=== PATIENT | female | born 1965 | race Caucasian/White ===

== ENCOUNTER 2016-09-28 21:27 | Emergency (ER) | payer OTHER ==
[2016-09-28] MEDS ORDERED: PHENERGAN IM ONE (23:45)
[2016-09-28] MEDS ORDERED: TORADOL IM ONE (23:45)
[2016-09-28] MEDS ORDERED: BENADRYL IM ONE (23:45)
--- NOTE | 2016-09-28 23:46 | PROVIDER DOCUMENTATION ---
HPI-Headache - General Chief Complaint: Headache Stated Complaint: HEADACHE Time Seen by Provider: 09/28/16 23:10 Source: patient Allergies/Adverse Reactions: Patient Allergies Allergy/AdvReac Type Severity Reaction Status Date / Time No Known Allergies Allergy Verified 05/19/15 11:09 Home Medications: Aripiprazole [Abilify] 5 mg PO QAM 05/29/13 Aspirin 81 mg PO DAILY 02/23/14 Budesonide/Formoterol Fumarate [Symbicort 160-4.5 Mcg Inhaler] 1 puff INH DAILY PRN 02/23/14 Buspirone [Buspar] 15 mg PO BID 02/23/14 Metoprolol [Lopressor] 50 mg PO DAILY 02/23/14 Sertraline HCl [Zoloft] 200 mg PO DAILY 02/23/14 Meloxicam 15 mg PO DAILY 04/17/15 PRAVAstatin [Pravachol] 100 mg PO QHS 04/17/15 Ranolazine [Ranexa] 1,000 mg PO BID 04/17/15 Tramadol [Ultram] 50 mg PO TID 04/17/15 Trazodone [Desyrel] 150 mg PO QHS 04/17/15 Metformin [Glucophage] 500 mg PO DAILY 02/28/16 Umeclidinium Sparks [Incruse Ellipta] 62.5 mcg IH DAILY 02/28/16 - History of Present Illness-Headache Nature of Presenting Problem: 51 y/o F presents to the ED with a headache for 2 days in her temples, bilateral ear pain, vomiting and nausea. Headache Location: reports: temporal Quality of Pain: reports: aching Severity: reports: mild, moderate Onset/Duration: reports: 2 days ago Timing: reports: still present Headache Context: reports: nothing Headache History: reports: occasional headaches Any recent trauma/injury?: reports: none Headache severity at the maximum: moderate Preceding Symptoms: reports: none Headache Exacerbated by:: reports: nothing Modifying Factors: improves with: nothing Similar Symptoms Previously?: No Recently seen or treated by another doctor?: No Review of Systems - Adult - REVIEW OF SYSTEMS - ADULT Constitutional: denies: chills, fever Eyes: reports: no symptoms reported Ears, Nose, Mouth & Throat: reports: ear pain. denies: hearing loss, mouth/ dental pain, throat pain Cardiovascular: reports: no symptoms reported Respiratory: denies: cough, shortness of breath, wheezing Gastrointestinal: reports: no symptoms reported Genitourinary: reports: no symptoms reported Musculoskeletal: reports: no symptoms reported Integumentary: reports: no symptoms reported Neurological: reports: headache/migraines. denies: dizziness/vertigo, slurred speech, syncope Psychiatric: reports: no symptoms reported Endocrine: reports: no symptoms reported Hematologic/Lymphatic: reports: no symptoms reported Allergic/Immunologic: reports: no symptoms reported All Other Systems: Reviewed and Negative Past History - Adult - PAST MEDICAL HISTORY-ADULT Review of Records: reports: Old Records Reviewed, Nursing Assessment Review, Medications Reviewed Major Childhood Illnesses: reports: denies history Cardiovascular: reports: HTN Respiratory: reports: asthma, COPD, sleep apnea (bi pap) Psychiatric: reports: bipolar Endocrine/Immune: reports: thyroid disorder Other Conditions: reports: denies history - PRIOR SURGERIES/PROCEDURES Surgical/Procedure History: reports: cholecystectomy, BTL, orthopedic (extremity ) - PRIOR HOSPITALIZATIONS Prior Hospitalizations: reports: none - IMMUNIZATION STATUS Childhood Immunizations: See Nurse Assessment Flu Vaccine: See Nurse Assessment - FAMILY HISTORY Family History: reviewed, not pertinent Physical Exam- Neurological - Physical Exam-Neuro Initial Vital Signs Reviewed: Yes General Appearance: appears well, alert, no apparent distress Eye Exam: bilateral eye: normal inspection, PERRL HENMT: moist mucous membranes, normal ENT inspection, pharynx normal, TM abnormal (right) Head Injury: no evidence of injury. negative: active bleeding Neck: non-tender, full range of motion, supple, normal inspection Respiratory: lungs clear, normal breath sounds, no pleuratic chest pain, no respiratory distress, no accessory muscle use Cardiovascular: normal peripheral pulses, tachycardia Abdominal Exam: normal bowel sounds, non tender, soft Extremity: normal range of motion, non-tender, normal gait, normal inspection gaming director Exam: normal hearing, normal speech, PERRL Motor/Sensory: no motor deficit, no sensory deficit, no pronator drift Neurologic: gaming director II-XII nml as tested, grossly normal, no motor/sensory deficits Integumentary: normal color, normal turgor, warm/dry Psych/Mental Status: normal mood/affect, normal thought content, normal thought process, oriented x 3 Progress - PLAN OF CARE/RESULTS Progress/Plan/Lab Results: Orders Category Date Time Status Diphenhydramine [Benadryl] Med 09/28/16 23:45 Discontinued 50 mg IM NOW ONE Ketorolac [Toradol] Med 09/28/16 23:45 Discontinued 60 mg IM NOW ONE Promethazine [Phenergan] Med 09/28/16 23:45 Discontinued 25 mg IM NOW ONE Vital Signs Temp Pulse Resp BP Pulse Ox 09/28/16 21:50 93 L 09/28/16 21:47 98 F 102 H 18 152/84 No Known Allergies Allergy (Verified 05/19/15 11:09) Aripiprazole [Abilify] 5 mg PO QAM 05/29/13 Aspirin 81 mg PO DAILY 02/23/14 Budesonide/Formoterol Fumarate [Symbicort 160-4.5 Mcg Inhaler] 1 puff INH DAILY PRN 02/23/14 Buspirone [Buspar] 15 mg PO BID 02/23/14 Metoprolol [Lopressor] 50 mg PO DAILY 02/23/14 Sertraline HCl [Zoloft] 200 mg PO DAILY 02/23/14 Albuterol [Albuterol Neb] 2.5 mg INH RTQ6H #0 neb 05/25/14 Meloxicam 15 mg PO DAILY 04/17/15 PRAVAstatin [Pravachol] 100 mg PO QHS 04/17/15 Ranolazine [Ranexa] 1,000 mg PO BID 04/17/15 Tramadol [Ultram] 50 mg PO TID 04/17/15 Trazodone [Desyrel] 150 mg PO QHS 04/17/15 Levothyroxine Sodium [Synthroid] 100 mcg PO DAILY #30 tablet 06/22/15 Metformin [Glucophage] 500 mg PO DAILY 02/28/16 Umeclidinium Sparks [Incruse Ellipta] 62.5 mcg IH DAILY 02/28/16 Albuterol 2.5MG/Ipratrop 0.5MG [Duoneb (A & A)] 3 ml INH RTQ4H #180 neb CefDINIR [Omnicef] 300 mg PO BID #14 capsule 03/01/16 Methylprednisolone [Medrol Dosepak] 4 mg PO DIRECTED #1 package 03/01/16 Amoxicillin/Pot Clavulanate [Augmentin] 875 mg PO Q12HR #14 tablet 01/10/17 Neomycin/Polymyxn/Hc Otic Susp [Cortisporin Otic Susp] 4 drop RIGHT EAR TID #1 bottle 09/28/16 Departure - Departure Time of Disposition Order: 23:48 DIAGNOSIS: Headache Qualifiers: Headache type: unspecified Headache chronicity pattern: unspecified pattern Intractability: not intractable Qualified Code(s): R51 - Headache Right otitis media Qualifiers: Chronicity: unspecified Disposition: HOME 01 Certified Medical Emergency: Emergent Condition: Stable Additional Instructions: Follow up with PCP ED Follow Up Instructions: You have been treated by a care provider in the Emergency Department. These instructions are being provided to you so you can have an understanding of how to care for yourself upon discharge. Upon discharge from the Emergency Department, you are responsible for making arrangements for follow-up care by a physician of your choice. Take all prescribed medications as directed. Return to the Emergency Department immediately for any new or worsening symptoms. You may call the Physician Referral phone number at [phone] to obtain a list of Physicians who are taking new patients. Prescriptions: Amoxicillin/Pot Clavulanate [Augmentin] 875 mg PO Q12HR #14 tablet Neomycin/Polymyxn/Hc Otic Susp [Cortisporin Otic Susp] 4 drop RIGHT EAR TID #1 bottle Instructions: Migraine Headache, [id number] Attestation - Scribe Verification/Attestation Scribe:: Roberto Devi Acting as Scribe for:: Roxy Queen Scribe documention review:: This chart was documented by a scribe and accurately reflects the service the provider performed and the decisions made by the provider. - Physician/ Mid-level Attestation Patient care was provided by Mid-level provider (WIND [employer]UR[employer] SHEET METAL WORKER/PA):: Yes Mid-level provider:: Roxy Queen Mid-level documentation review:: The Mid-level provider documentation, treatment plan and medical decision making was reviewed by the physician who agrees with all treatment and medical decision making by the MLP.
[2016-09-29 00:24] VITALS: BP 122/81
== END 2016-09-29 01:12 | disposition home or self-care (01) ==
LOC: P.ED 21:27
DX: H66.91 Otitis media, unspecified, right ear (principal); R51 Headache; H92.03 Otalgia, bilateral; R11.2 Nausea with vomiting, unspecified; R00.0 Tachycardia, unspecified; I10 Essential (primary) hypertension; J44.9 Chronic obstructive pulmonary disease, unspecified; F31.9 Bipolar disorder, unspecified; Z79.899 Other long term (current) drug therapy; Z79.82 Long term (current) use of aspirin
CPT/HCPCS: 96372; J1200; J1885; J2550

== ENCOUNTER 2017-01-10 19:54 | Inpatient (IN) ==
[2017-01-10 20:14] LABS: BASO% 0.1 % (0.0-0.8); EOS# 0.02 X1000 (0.0-0.7); EOS% 0.3 % (0.0-10.0); HEMATOCRIT 39.9 % (37.0-47.0); IMM GRAN# 0.01 X1000 (0.0-0.04); IMM GRAN% 0.1 % (0.0-0.5); LYMPH# 1.13 X1000 (1.2-3.4); LYMPH% 15.1 % (20.5-51.1); MANUAL DIFF NEEDED? NO; MCH 32.8 PG (27-31); MCHC 32.6 g/dL (33-37); MCV 100.8 FL (81-99); MONO# 0.58 X1000 (0.11-0.59); MONO% 7.7 % (1.7-9.3); MPV 9.3 FL (7.4-10.4); NEUT% 76.7 % (42.2-75.2); PLT 279 X1000 (130-400); RBC 3.96 XMIL (4.2-5.4)
[2017-01-10 20:39] LABS: AGAP 7; ALBUMIN 4.2 g/dL (3.5-5.0); ALKALINE PHOSPHATASE 62 U/L (32-104); BUN 3 mg/dL (8-22); CHLORIDE 81 mmol/L (98-107); COSMO 248; GOT 13 U/L (10-30); GPT 9 U/L (10-36); POTASSIUM 3.8 mmol/L (3.5-5.1); SODIUM 124 mmol/L (136-145); TCO2 35 mmol/L (25-35)
[2017-01-10] MEDS ORDERED: ZOFRAN IV ONE (20:58)
[2017-01-10] MEDS ORDERED: DEMEROL IV ONE (20:58)
[2017-01-10] MEDS ORDERED: NS 1,000 ML IV ONE ×2 (21:15)
[2017-01-10] MEDS ORDERED: MORPHINE IV PRN (21:15)
--- NOTE | 2017-01-10 21:15 | PROVIDER DOCUMENTATION ---
This chart was entered by Corina Fitch, acting as scribe for Rodrigo Garces MD. HPI-Musculoskeletal Pain/Inj - GENERAL Time Seen by Provider: 01/10/17 20:17 Source: patient, EMS - HX OF PRESENT ILLNESS-MUSKULOSKELTAL Nature of Presenting Problem: Pt is a 51 year old female present to the Er with cc of ankle injury. Pt was transported by EMS and has obvious ankle fracture. Pt states she took all her medicines at once instead of throughout the day and fell. When MD feels on foot pt states she can feel him touching her. Quality of Pain: reports: aching Severity in ED: moderate Onset/Duration: just prior to arrival Timing: still present Modifying Factors: improves with: immobilization, rest Any recent injury?: Yes Locality of Occurance: Home Similar Symptoms Previously?: No Recently seen or treated by another doctor?: No - FALL INJURY Location of Pain/Injury: reports: other (ankle) Pain Radiation: reports: no radiation Reason for Fall: reports: other (took all her prescription medicines at once) Symptoms prior to fall:: reports: none. denies: fever/chills/sweaty, chest pain , cough, dizzy/lightheaded, headache, seizure Loss of Consciousness: no loss of consciousness Injury Associated Symptoms: reports: unable to bear weight - LOWER EXTREMITY PAIN/INJURY Lower Extremities Pain: ankle: left Context / Method of Injury: reports: fell Associated Symptoms: reports: denies symptoms Review of Systems - Adult - REVIEW OF SYSTEMS - ADULT Constitutional: reports: no symptoms reported Eyes: reports: no symptoms reported Ears, Nose, Mouth & Throat: reports: no symptoms reported Cardiovascular: reports: no symptoms reported Respiratory: reports: no symptoms reported Gastrointestinal: denies: abdominal pain, hematemesis, constipation Genitourinary: denies: dysuria, discharge, frequency Musculoskeletal: reports: bone pain, joint pain, joint swelling Integumentary: denies: hives, hair loss, mole changes Neurological: denies: numbness, paresthesia, seizure Psychiatric: reports: no symptoms reported Endocrine: reports: no symptoms reported Hematologic/Lymphatic: reports: no symptoms reported Allergic/Immunologic: reports: no symptoms reported All Other Systems: Reviewed and Negative Past History - Adult - PAST MEDICAL HISTORY-ADULT Review of Records: reports: Old Records Reviewed, Nursing Assessment Review Cardiovascular: reports: HTN Respiratory: reports: asthma, COPD, sleep apnea (bi pap) Psychiatric: reports: bipolar Endocrine/Immune: reports: thyroid disorder - PRIOR SURGERIES/PROCEDURES Surgical/Procedure History: reports: cholecystectomy, BTL, orthopedic (extremity ) - IMMUNIZATION STATUS Childhood Immunizations: See Nurse Assessment Flu Vaccine: See Nurse Assessment - FAMILY HISTORY Family History: reviewed, not pertinent - SOCIAL HISTORY Smoking: cigarettes (former smoker) Provider spent 3-5 mins advising pt. on dangers of tobacco.: Discussed manners to quit use, and f/u contacts for add'l counseling. Physical Exam-Injury Related - Physical Exam-Injury Related Initial Vital Signs Reviewed: Yes General Appearance: appears well, alert, no apparent distress Immobilization?: applied in ED Eyes: PERRL/EOMI, pink conjunctivae Head, Ears, Nose, Mouth & Throat: moist mucous membranes, normal ENT inspection , TMs normal, pharynx normal Neck: non-tender, full range of motion Respiratory: chest non-tender, lungs clear, normal breath sounds, no pleuratic chest pain, no respiratory distress, no accessory muscle use Cardiovascular: normal peripheral pulses, regular rate, rhythm, no edema, no gallop, no JVD, no murmur Abdominal Exam: normal bowel sounds, non tender, soft Back Exam: normal inspection, no CVA tenderness Extremity: deformity, inflammation, swelling Integumentary: normal color, warm/dry Neurologic: grossly normal, no motor/sensory deficits Psych/Mental Status: normal mood/affect, normal thought content, normal thought process, oriented x 3 - Glascow Coma Score Best Eye Response ([place]ett): (4) open spontaneously Best Verbal Response ([place]ett): (5) oriented Best Motor Response ([place]): (6) obeys commands Jett Total: 15 Progress - PLAN OF CARE/RESULTS Progress/Plan/Lab Results: Vital Signs - 8 hr 01/10/17 20:06 01/10/17 20:17 Temperature 98.9 F 97.8 F Pulse Rate 93 H 107 H Respiratory Rate 18 23 Blood Pressure 124/82 94/78 O2 Sat by Pulse Oximetry 98 97 Laboratory Results - last 24 hr 01/10/17 01/10/17 19:40 19:40 WBC 7.50 RBC 3.96 L Hgb 13.0 Hct 39.9 MCV 100.8 H MCH 32.8 H MCHC 32.6 L RDW Std Deviation 12.6 Plt Count 279 MPV 9.3 Immature Gran % (Auto) 0.1 Neut % (Auto) 76.7 H Lymph % (Auto) 15.1 L [place] % (Auto) 7.7 Eos % (Auto) 0.3 Baso % (Auto) 0.1 Immature Gran # (Auto) 0.01 Neut # (Auto) 5.75 Lymph # (Auto) 1.13 L [place] # (Auto) 0.58 Eos # (Auto) 0.02 Baso # (Auto) 0.01 Sodium 124 L Potassium 3.8 Chloride 81 L Carbon Dioxide 35 Anion Gap 7 BUN 3 L Creatinine 0.4 L Estimated GFR/1.73 m2 > 60 BUN/Creatinine Ratio 8 Glucose 137 H Calculated Osmolality 248 Calcium 9.0 Total Bilirubin 0.20 AST 13 ALT 9 L Alkaline Phosphatase 62 Total Protein 7.0 Albumin 4.2 Globulin 3.0 Albumin/Globulin Ratio 2.0 Orders Category Date Time Status CBC WITH ELECTRONIC DIFF [HEME] Stat Lab 01/10/17 19:40 Completed COMPREHENSIVE METABOLIC PANEL [CHEM] Stat Lab 01/10/17 19:40 Completed TYPE & SCREEN [BBK] Stat Lab 01/10/17 20:45 Received Meperidine [Demerol] Med 01/10/17 20:58 Discontinued 25 mg IV NOW ONE Ondansetron [Zofran] Med 01/10/17 20:58 Discontinued 4 mg IV NOW ONE Result Diagrams: 01/10/17 19:40 01/10/17 19:40 - XRAY 1 XRAY: Left XRAY Study: Ankle Impression: Abnormal (COMPOUND ANKLE FX) Departure - Departure Time of Disposition Decision: 21:12 DIAGNOSIS: Hyponatremia Trimalleolar fracture of ankle, closed Qualifiers: Encounter type: initial encounter Laterality: left Qualified Code(s): S82.852A - Displaced trimalleolar fracture of left lower leg, initial encounter for closed fracture COPD (chronic obstructive pulmonary disease) Qualifiers: COPD type: unspecified COPD Qualified Code(s): J44.9 - Chronic obstructive pulmonary disease, unspecified Disposition: ADMITTED INPATIENT 09 Certified Medical Emergency: Emergent Condition: Stable This chart was documented by the indicated scribe, (Corina Fitch) and accurately reflects the services I performed and decisions made by Mili haas Michael L., MD, as attested by the provider's signature.
[2017-01-11 00:09] LABS: ALLEN TEST YES; BLOOD TYPE ARTERIAL; DRAW SITE R RADIAL; METHB 1.4 % (0.0-1.5); SAMPLE BLOOD
[2017-01-11 00:16] LABS: INR 0.96; PROTIME 13.1 Seconds (9.2-11.7); PTT 31.5 Seconds (22.0-36.0)
[2017-01-11] MEDS: DUONEB (A & A) INH SCH ×5 (00:20→21:00)
[2017-01-11 00:28] LABS: O2(CT) 13.8 mL/dL (15.0-23.0); SAO2 90.8 % (95.0-100.0); THB 12.5 g/dL (11.5-17.4); pH(98.6) 7.31 (7.35-7.45)
[2017-01-11 00:36] LABS: PCO2(98.6) 85 mmHg (35-45); PO2(98.6) 45 mmHg (60-100)
[2017-01-11 00:37] LABS: MODALITY CANNULA
[2017-01-11 01:11] LABS: URINE CULTURE NEEDED? NO; URINE SOURCE CATH
[2017-01-11 01:17] LABS: BILIRUBIN URINE NEGATIVE (NEGATIVE); BLOOD URINE NEGATIVE (NEGATIVE); COLOR YELLOW; GLUCOSE URINE NEGATIVE (NEGATIVE); LEUKOCYTES URINE NEGATIVE (NEGATIVE); NITRITE URINE NEGATIVE (NEGATIVE); PROTEIN URINE TRACE mg/dL (NEGATIVE); SP GRAVITY URINE 1.017; TURBIDITY URINE CLEAR (CLEAR); UROBILINOGEN URINE NORMAL (NORMAL)
[2017-01-11 01:18] LABS: URINE MICRO REVIEW NEEDED? YES
[2017-01-11 01:20] LABS: UR EPITHELIAL CELLS <10 /HPF (<10); URINE BACTERIA NEGATIVE /HPF; URINE RBC <10 /HPF (<10); URINE WBC <10 /HPF (<10)
[2017-01-11 01:27] LABS: UR AMPHETAMINES QUAL NONE DETECTED (NONE DETECT); UR BARBITUATES QUAL NONE DETECTED (NONE DETECT); UR BENZODIAZEPIN QUAL NONE DETECTED (NONE DETECT); UR CANNABINOIDS QUAL NONE DETECTED (NONE DETECT); UR COCAINE QUAL NONE DETECTED (NONE DETECT); UR METHADONE QUAL PRESUMPTIVE POSITIVE (NONE DETECT); UR OPIATES QUAL NONE DETECTED (NONE DETECT); UR OXYCODONE QUAL NONE DETECTED (NONE DETECT); UR PCP QUAL NONE DETECTED (NONE DETECT)
[2017-01-11 01:39] LABS: URINE CASTS GRANULAR PRESENT
[2017-01-11] MEDS ORDERED: TYLENOL PO PRN (03:04)
[2017-01-11] MEDS: MORPHINE IM PRN ×3 (03:59→14:33)
[2017-01-11 06:10] LABS: MANUAL DIFF NEEDED? NO
[2017-01-11 06:22] LABS: BASO% 0.1 % (0.0-0.8); EOS# 0.01 X1000 (0.0-0.7); EOS% 0.1 % (0.0-10.0); HEMATOCRIT 37.9 % (37.0-47.0); HEMOGLOBIN 12.1 g/dL (12.0-16.0); IMM GRAN# 0.02 X1000 (0.0-0.04); IMM GRAN% 0.2 % (0.0-0.5); LYMPH# 1.05 X1000 (1.2-3.4); LYMPH% 12.1 % (20.5-51.1); MCH 32.2 PG (27-31); MCHC 31.9 g/dL (33-37); MCV 100.8 FL (81-99); MONO% 11.5 % (1.7-9.3); PLT 273 X1000 (130-400); RBC 3.76 XMIL (4.2-5.4)
[2017-01-11 06:31] LABS: HEMOGLOBIN A1C 4.7 % (4.8-6.0)
[2017-01-11 06:36] LABS: ALLEN TEST YES; BE 23.2 mmoll (-3.0-3.0); BLOOD TYPE ARTERIAL; DRAW SITE R BRACHIAL; METHB 1.6 % (0.0-1.5); O2(CT) 14.6 mL/dL (15.0-23.0); SAMPLE BLOOD; SAO2 89.8 % (95.0-100.0); THB 12.6 g/dL (11.5-17.4); pH(98.6) 7.33 (7.35-7.45)
--- NOTE | 2017-01-11 06:36 | EKG Report ---
Test Performed on : 01/11/2017 06:11:40 AM Test Reason : Ankle Fx, Surgical Patient Blood Pressure : / mmHG Vent. Rate : 117 BPM Atrial Rate : 117 BPM P-R Int : 174 ms QRS Dur : 078 ms QT Int : 328 ms P-R-T Axes : 062 083 059 degrees QTc Int : 457 ms Sinus tachycardia. Otherwise normal ECG When compared with ECG of 06-NOV-2016 17:25, No significant change was found Confirmed by Eula VENTURA, Harshil Frazier ([id number]) on 01/11/2017 7:26:42 PM
[2017-01-11 06:37] LABS: AGAP 6; BUN 2 mg/dL (8-22); CALCIUM 9.4 mg/dL (8.8-10.2); CHLORIDE 89 mmol/L (98-107); COSMO 270; POTASSIUM 4.3 mmol/L (3.5-5.1); SODIUM 137 mmol/L (136-145); TCO2 42 mmol/L (25-35)
[2017-01-11 06:39] LABS: MODALITY CANNULA
[2017-01-11] MEDS: SODIUM CHLORIDE 0.9% INJ SCH (06:40)
[2017-01-11] MEDS: PROTONIX IV SCH (06:40)
[2017-01-11] MEDS: SYNTHROID PO SCH (06:40)
[2017-01-11 06:43] LABS: PCO2(98.6) 104 mmHg (35-45); PO2(98.6) 49 mmHg (60-100)
--- NOTE | 2017-01-11 07:59 | Diag Imaging Result Document ---
PROCEDURE NAME: HEAD W/O CONTRAST - 01/11/2017 CT OF THE HEAD WITHOUT CONTRAST: FINDINGS: There is no evidence of mass effect, bleed, or abnormal extra-axial fluid collection. There is some patient motion. The paranasal sinuses are clear, and there is no evidence of acute bony disease. Compared to 02/22/2014, there has been no significant change in the appearance of the brain. IMPRESSION: No evidence of acute intracranial disease.
--- NOTE | 2017-01-11 08:29 | Diag Imaging Result Document ---
PROCEDURE NAME: ANKLE 2 VIEWS LEFT - 01/10/2017 LEFT ANKLE, TWO VIEWS: FINDINGS: The tibia is displaced medially from the talus by 2-3 cm. I believe there is an avulsed fragment from the medially malleolus. There is also an oblique fracture through the distal fibula with displacement and angulation of at least 25 degrees. There may be an additional fracture to the distal tibia at the ankle as well. IMPRESSION: Fractures to the distal tibia and fibula with displacement.
--- NOTE | 2017-01-11 08:31 | Diag Imaging Result Document ---
PROCEDURE NAME: CHEST-1 VIEW - 01/11/2017 SINGLE FRONTAL RADIOGRAPH OF THE CHEST: COMPARISON: 11/06/2016. FINDINGS: There is evidence of prior granulomatous disease, stable. The lungs are grossly clear. There is no definite pleural fluid collection. Cardiac silhouette is grossly unremarkable. IMPRESSION: No definite acute pathology by plain radiograph.
[2017-01-11] MEDS: TOPROL XL PO SCH ×2 (09:01→09:05)
[2017-01-11] MEDS: ZOFRAN IV PRN ×2 (09:34→14:33)
[2017-01-11 09:46] LABS: BLOOD TYPE ARTERIAL; SAMPLE BLOOD; pH(98.6) 7.31 (7.35-7.45)
[2017-01-11 09:47] LABS: PCO2(98.6) 93 mmHg (35-45); PO2(98.6) 79 mmHg (60-100); THB 12.9 g/dL (11.5-17.4)
[2017-01-11 09:48] LABS: ALLEN TEST YES; DRAW SITE R RADIAL; MODALITY BI PAP
--- NOTE | 2017-01-11 12:16 | PROGRESS NOTE ---
DATE: 01/11/2017 This is a 51-year-old. who was admitted, I believe yesterday. She had a fall and suffered a fracture of the distal tibia and fibula with displacement. She is scheduled for surgery today. CT of her head was unremarkable. No evidence of any new intracranial process. A chest x-ray done this morning, no definite pathology. EXAM: Today appears comfortable. Temp 98.1 degrees, pulse 112, respirations 20, blood pressure 112/58. The pupils were equal, round. CVP less than 6 cm.Lungs: Clear in all lung song. Cardiovascular: Regular rhythm and rate without murmur or S3. Weight 255 pounds. Urine output 6000 mL. LAB REVIEW: From this morning, white count 8690, hematocrit 37, platelet count 273,000. Chemistry: Sodium 137, potassium 4.2, chloride 89. BUN 2, creatinine 0.5. Hemoglobin A1c was 4.7. TSH was 0.03. ASSESSMENT AND PLAN: 1. Fracture of her ankle, distal fracture with displacement of the left ankle and distal tibia and fibula. So plan is for surgery today. Apparently she had a fracture of her back in the past and surgery on her back. 2. History of bipolar disease. 3. Diabetes mellitus type 2. Follow sugars. 4. History of hypothyroidism. We did get a TSH which was low. We will check her T4 and TSH. Right now labs reviewed unremarkable. White count, stable. Red blood cell count stable. Hematocrit is 37. On review of her orders, I do not see any change at this point. She is getting normal saline at 187 mL an hour. She is getting Zofran 4 mg IV as needed, Protonix 40 mg IV q.24 hours. Metoprolol succinate 25 mg daily, and metformin ER 500 mg daily. Levothyroxine 175 mg a day. We will check electrolytes, CBC and a T4 and TSH, B12 and folate in the morning. cc: Abhinav Nam MD
--- NOTE | 2017-01-11 13:49 | HISTORY AND PHYSICAL ---
PRIMARY CARE PROVIDERS: Dr. Arias. CHIEF COMPLAINT: Altered mental status and fall. HISTORY OF PRESENT ILLNESS: Ms. Sosa is a 51-year-old, female who presented to [place] [facility] with complaints of fall and left ankle pain. Upon initial arrival, the ER nurse reported that the patient was lethargic though she did become more alert after arrival, though was still very confused. The patient could state her name but did not know what month it was or where she was, she could not state the President either. Obtaining a past medical history as well as history of present illness was difficult due to this. The patient did report that she took all her medicines at 1 time, and was standing out on her porch and lost her balance and fell off the porch. She initially denied to [facility] that she hit her head and stated that she did not have any loss of consciousness , though once upon arrival to [facility], the patient did report to me that she did hit her head. Other than her left ankle pain and a spot on her left lower quadrant, the patient denied any other pain. Upon evaluation in the ER the patient was noted to have a displaced trimalleolar left ankle fracture. She was also found to be hyponatremic with a sodium level of 124. Dr. Leung, Orthopedic Surgeon, was notified and did want the patient admitted to [facility] for possible surgery this morning. Upon patient's arrival to [facility], she was still quite confused. She did have slightly decreased oxygen saturation on her nasal cannula at 2 L of 88%. The patient reports that she wears oxygen at home due to COPD disease. She also reports that she wears CPAP at night. Due to the patient's confusion, we did ultimately decide order a CT of the head, which was negative for any acute intracranial abnormality. We also did order arterial blood gases which had results of pH is 7.31 and PCO2 of 85, PO2 45, HCO3 34.6, O2 saturation of 90.8. The patient was subsequently placed on BiPAP. Her chest x-ray showed no acute disease. The patient has been placed on the medical floor with telemetry for further evaluation of her ankle fracture, COPD and hyponatremia. REVIEW OF SYSTEMS: A 12 point review of systems was conducted with the patient. All were negative except for pertinent positives mentioned above in the HPI. As previously mentioned, this was a limited due to the patient's current condition and confusion. PAST MEDICAL HISTORY: 1. COPD. 2. Hypertension. 3. Sleep apnea. 4. Bipolar. 5. Hypothyroidism. 6. Chronic hypercapnic respiratory failure. 7. Obesity. 8. Diabetes mellitus type 2. 9. Hyperlipidemia. PAST SURGICAL HISTORY: 1. Cholecystectomy. 2. Tubal ligation. FAMILY HISTORY: Family history is unable to be obtained at this time due to the patient's condition and confusion. SOCIAL HISTORY: The patient reports that she lives at home with her dad. She does report that she still smokes a pack of cigarettes per day. There is no known history of alcohol or illicit drug abuse. ALLERGIES: Patient has no known allergies. HOME MEDICATIONS: The patient does have an extensive medication list, though due to her current condition and confusion, we are unable to confirm and verify this. If her confusion has not improved by in the morning, we will try to contact the patient's pharmacy to verify her medications. DIAGNOSTIC DATA/LABORATORY RESULTS: White blood cell count 7.5, hemoglobin 13, hematocrit 39.9, platelet count 279,000. PT 13.1, INR 0.96, PTT 31.5, sodium 124, potassium 3.8. Chloride 81, bicarb 35. BUN 3, creatinine 0.4, GFR is greater than 60. Glucose is 137. Hemoglobin A1c was 4.7, calcium 9, liver function tests within normal limits. Arterial blood gases were obtained on the nasal cannula at 4 L, pH was 7.31, pCO2 85, pO2 45, HCO3 was 34.6 with a base excess of 13. O2 saturation was 90.8, carboxyhemoglobin was 12. Urine drug screen was positive for methadone. Urinalysis was obtained via cath and was positive for trace protein and was negative for ketones, blood nitrites, leukocytes or bacterium. Chest x-ray shows no acute abnormality. We are waiting official radiology over read. CT the head noncontrast showed no acute intracranial abnormality. Ankle complete showed a left trimalleolar fracture that is displaced. PHYSICAL EXAMINATION: VITAL SIGNS: Temperature is 97.9 degrees, heart rate 110, respirations 20, blood pressure 110/56. O2 saturation is 89% nasal cannula at 2 L. We did increase the patient's oxygen to 4 L nasal cannula and her oxygen saturation did come up to 94%. GENERAL: Ms. Sosa is a 51-year-old, female, who was resting in the inpatient bed. She was in no acute distress, though was confused upon examination due to this her history of present illness and obtaining past medical history was limited. HEENT: Head is atraumatic, normocephalic. Pupils are equal, round, reactive to light. Were 3 mm bilaterally and brisk. Oral mucosa is moist. Oropharynx clear. NECK: Supple. Trachea midline. CARDIOVASCULAR: Patient has normal S1, S2. No murmurs, gallops, or rubs appreciated with a regular rate and rhythm. PULMONARY: Patient has symmetrical chest expansion bilaterally. Lung sounds and bilateral song had wheezing noted. ABDOMEN: Soft, nontender, nondistended. Bowel sounds are present in all 4 quadrants. Normoactive. The patient did report some pain in her left lower quadrant. Upon examination, she does have an area of discoloration which appears to be ecchymosis in the LLQ area. This is likely where her pain is coming from though she denies any tenderness. GENITOURINARY: Patient has Alston catheter in place with clear yellow urine noted in the Alston drainage bag. EXTREMITIES: Patient has a posterior OCL splint noted to left lower extremity from approximately just below the knee down. Capillary refill and sensation distal to the splint is intact and cap refill is less than 3 seconds. All other extremities are within normal limits. Pulse, motor and sensory is intact in all extremities as well. Pedal pulse in right foot is 3+. INTEGUMENTARY: Patient skin is pink, warm, dry intact. No other lesions or sores noted. NEUROLOGIC: The patient is alert and oriented to person only, though cranial nerves 2-12 appear to be grossly intact. ASSESSMENT AND PLAN: 1. Left trimalleolar ankle fracture. For this the patient has been splinted as previously mentioned. We have placed a consult with Dr. Leung and will await his evaluation and further recommendations, though Dr. Garces did speak with him last night and he reported that he did plan to take the patient to surgery sometime today hopefully. We will continue to follow her neurovascular status in her left lower extremity distal to the injury and splint and continue to follow. 2. Metabolic encephalopathy. This is likely multifactorial. This could be related to ingestion of medications and/or her hypercapnia. We have ordered for the patient to be placed on BiPAP. We have held all sedative medications at this time. Though the patient does have an acute left ankle fracture, we did keep an order for morphine p.r.n. as needed, though will use this cautiously and we have placed orders for 2 q. hour neuro checks as well as some aspiration precautions. The patient does have vital signs also ordered q. 4 hours and we will continue to monitor her neurological status closely. 3. Chronic hypercapnic respiratory failure. As I previously mentioned we have placed the patient on BiPAP at this time. We will monitor her respiratory status closely and repeat ABG in the morning. 4. Chronic obstructive pulmonary disease. We will continue to give the patient a DuoNeb albuterol Atrovent treatments q.4 hours and monitor her respiratory status closely. 5. Hyponatremia. This could be multifactorial as well. The patient does have severe COPD disease and does also take Trileptal which can be known to cause some hyponatremia. We will give her a normal saline infusion and repeat a BMP in the morning and monitor this closely. She is already on a 2QH neuro checks as previously mentioned. 6. Hypertension. Will continue with her metoprolol 25 mg p.o. daily. 7. Diabetes mellitus type 2. We will continue her metformin and do morning and night fingerstick blood sugars. 8. Hypothyroidism. We will continue her Synthroid. We have order for TSH in the morning. 9. Tobacco abuse. We will continue to talk with the patient throughout her admission about smoking cessation given that she does have severe COPD disease and chronic hypercapnic respiratory failure. 10. The patient is placed on the medical floor with telemetry. She will have vital signs q.4 hours, deep vein thrombosis prophylaxis will be provided her with sequential compression devices at this time, though unfortunately given her left lower extremity injury, this could only be placed on the right lower extremity. 11. GI prophylaxis provided with Protonix 40 mg IV q.24 hours. She will be NPO at this time. Further orders and recommendations pending hospital course, diagnostic studies and physician evaluation. Dictated by TUSHAR Leon for Eren Locke MD Patient seen and examined by me ; plan discussed with [employer]MAIL OPERATIONS MANAGER cc: MD CHRISTOPH Ann
[2017-01-11] MEDS: GLUCOPHAGE XR PO SCH (16:51)
[2017-01-11] MEDS ORDERED: SENSORCAINE 0.5%-EPI 1:200,000 ONE (17:32)
[2017-01-11] MEDS ORDERED: KEFZOL 2 GM/D5W 2 GM/50 ML IVPB ONE (17:32)
[2017-01-11] MEDS ORDERED: CLAVE SECONDARY SET 11953 ONE (17:33)
[2017-01-11] MEDS ORDERED: NEOSPORIN G.U. IRRIGANT ONE (17:35)
[2017-01-11] MEDS ORDERED: DIPRIVAN 1% 1,000 MG/100 ML BOTTLE ONE (19:45)
[2017-01-11] MEDS ORDERED: NS 1,000 ML ONE (19:52)
[2017-01-11] MEDS: DILAUDID ONE ×4 (20:23→20:40)
[2017-01-11 20:44] LABS: ALLEN TEST YES; BE 19.2 mmoll (-3.0-3.0); BLOOD TYPE ARTERIAL; DRAW SITE R RADIAL; O2(CT) 14.8 mL/dL (15.0-23.0); PO2(98.6) 52 mmHg (60-100); SAMPLE BLOOD; SRATE 14 BPM; THB 11.3 g/dL (11.5-17.4); TVOL 600 mL; pH(98.6) 7.47 (7.35-7.45)
[2017-01-11 20:46] LABS: MODALITY VENTILATOR; PCO2(98.6) 63 mmHg (35-45)
[2017-01-11] MEDS: NS 1,000 ML IV SCH (21:19)
[2017-01-11] MEDS: DIPRIVAN 1% 1,000 MG/100 ML BOTTLE IV SCH ×2 (21:45→23:17)
--- NOTE | 2017-01-11 21:59 | OPERATIVE NOTE ---
PROCEDURE DATE: 01/11/2017 PREOPERATIVE DIAGNOSIS: Bimalleolar ankle fracture dislocation left ankle. POSTOP DIAGNOSIS: Bimalleolar ankle fracture dislocation left ankle. PROCEDURE: Open reduction, internal fixation, left bimalleolar ankle fracture dislocation. SURGEON: Flaca Peterson MD. TISSUE REWINDER: Roberto Mondragon. ANESTHESIA: General. COMPLICATION: None. PROCEDURE IN DETAIL: This is a 51-year-old female with a unstable fracture dislocation left ankle presents for surgical fixation. Risks, benefits, and no guarantees were discussed, and she is willing to proceed. She was taken the operating room and satisfactory anesthesia obtained. The left ankle was prepped and draped in usual sterile fashion. A time-out taken to confirm operative site, procedure, and patient. The leg was wrapped with an Esmarch. Tourniquet inflated to 350 mmHg. A lateral incision was made over the distal fibula and the distal fibular fracture noted to be a Coe C fracture with syndesmosis disruption. This was reduced with a reduction clamp and a precontoured Synthes locking plate secured the lateral aspect of the fibula. The C-arm was used to verify accurate fracture reduction and hardware placement with care taken to avoid joint penetration. Afterwards, a medial incision was made over the medial malleolus and the medial malleolar fracture reduced near anatomically. This was stabilized with 2 intramedullary 45 length partially threaded cancellous bone screws. Afterwards, the syndesmosis screw was placed through 1 of the empty slots on the lateral plate at the level of the syndesmosis with the ankle dorsiflexed and reduced. The wounds were irrigated and closed in layers with 2-0 Vicryl, and skin sheridan. The C-arm was used to verify accurate fracture reduction and hardware placement. A short-leg cast was applied. Tourniquet released with good return of capillary blood flow. No intraoperative complications were noted. Instrument count and sponge count was correct at the time of closure. cc: Arturo Peterson MD
[2017-01-12] MEDS: KEFZOL 1 GM/D5W 1 GM/50 ML IVPB IV SCH ×2 (01:31→10:27)
[2017-01-12] MEDS: DIPRIVAN 1% 1,000 MG/100 ML BOTTLE IV SCH ×5 (01:32→10:06)
[2017-01-12] MEDS: MORPHINE IM PRN ×3 (02:00→13:36)
[2017-01-12] MEDS: DUONEB (A & A) INH SCH ×5 (03:30→23:00)
--- NOTE | 2017-01-12 04:28 | CONSULTATION ---
DATE OF CONSULTATION: 01/11/2017 CHIEF COMPLAINT: Left ankle pain. HISTORY OF PRESENT ILLNESS: Ms. Sosa is a 51-year-old female who is experiencing left ankle pain status post fall. Patient states she took all the medications at once instead of throughout the day, and she fell. She was unable to bear weight on her injury. She was brought to the emergency room for evaluation, where radiographic findings revealed a left closed displaced bimalleolar fracture and we were consulted for Orthopedic evaluation. ALLERGIES: No known drug allergies. PAST MEDICAL HISTORY: 1. Hypertension. 2. Diabetes. 3. COPD. 4. Sleep apnea. 5. Bipolar disorder. 6. Thyroid disorder. PAST SURGICAL HISTORY: 1. Cholecystectomy. 2. BTL. 3. Orthopedic. SOCIAL HISTORY: She is a former smoker. CURRENT MEDICATIONS: 1. Albuterol ipratropium (DuoNeb). 2. Levothyroxine 175 mcg p.o. daily. 3. Metformin 500 mg p.o. daily. 4. Metoprolol succinate 25 mg p.o. daily. REVIEW OF SYSTEMS: HEENT: No known history of cerebrovascular disease, Denies recent interval health changes. Cardiac: The patient has a history of hypertension. Denies any coronary artery disease or valvular heart disease. No chest pain, pressure, or other anginal equivalents. Pulmonary: The patient is a former smoker, and she has COPD and asthma. Gastrointestinal: No recent nausea, vomiting, diarrhea, constipation. : Denies kidney or bladder infection or dysfunction. Neurological/Extremities: No radicular pain, weakness, or paresthesia. Musculoskeletal: She is here today with a left ankle fracture. PHYSICAL EXAMINATION: General: The patient is resting comfortably at bedside. She is able to articulate and answer all questions fully. HEENT: Head is normocephalic. Ears are patent. Throat without exudate. Neck: Supple. Heart: Regular rate and rhythm. No murmurs, gallops, or rubs. Lungs: Clear to auscultation bilaterally. Abdomen: Nontender. : Deferred. Neurological: She discerns soft touch to the affected extremity. Gross motor function is intact. Musculoskeletal: Left ankle, she is currently in a splint and there is some deformity. I did not appreciate any ecchymoses. Neurovascularly intact. IMPRESSION: Left closed displaced bimalleolar fracture. PLAN: Open reduction, internal fixation left ankle. The risks and benefits of surgery were explained to the patient including risks of anesthesia, , bleeding, infection, damage from infection, nerves, blood vessels, also bleeding blood clots and other imponderables were discussed with the patient and she wishes to proceed with operative management at this time. Dictated by KJ Tesfaye for Peterson Leung MD cc: KJ Tesfaye MD [facility]
[2017-01-12 04:35] LABS: ALLEN TEST YES; BE 16.4 mmoll (-3.0-3.0); BLOOD TYPE ARTERIAL; DRAW SITE R RADIAL; METHB 1.6 % (0.0-1.5); O2(CT) 16.2 mL/dL (15.0-23.0); PO2(98.6) 70 mmHg (60-100); SAMPLE BLOOD; SAO2 96.8 % (95.0-100.0); SRATE 14 BPM; THB 12.3 g/dL (11.5-17.4); TVOL 600 mL; pH(98.6) 7.52 (7.35-7.45)
[2017-01-12 04:36] LABS: MODALITY VENTILATOR; PCO2(98.6) 51 mmHg (35-45)
[2017-01-12] MEDS: XARELTO PO SCH (05:39)
[2017-01-12] MEDS: PROTONIX IV SCH (05:52)
[2017-01-12] MEDS: SYNTHROID PO SCH (05:53)
[2017-01-12 05:57] LABS: FREE T4 2.37 ng/dL (0.93-1.70)
--- NOTE | 2017-01-12 06:06 | Diag Imaging Result Document ---
PROCEDURE NAME: CHEST-PORTABLE - 01/12/2017 PORTABLE CHEST: COMPARISON: Compared to 01/11/2017. FINDINGS: Endotracheal tube remains in good position. The lungs are well expanded. The heart is not enlarged. There is granuloma in the left base. No consolidation. Mild increased interstitial markings. IMPRESSION: Mild pulmonary edema.
--- NOTE | 2017-01-12 06:14 | Diag Imaging Result Document ---
PROCEDURE NAME: CHEST-PORTABLE - 01/11/2017 SUPINE PORTABLE CHEST: COMPARISON: Compared to 01/11/2017 earlier in the day. FINDINGS: Interval placement of an endotracheal tube. The tip is located 2 cm above the alexandr. The lungs are well expanded. The heart is not enlarged. The vessels are not distended. No pleural effusions identified. There is a granuloma in the left base. IMPRESSION: Endotracheal tube in good position.
[2017-01-12] MEDS ORDERED: FENTANYL ONE ×2 (06:54→06:56)
[2017-01-12] MEDS ORDERED: VERSED ONE (06:55)
[2017-01-12] MEDS ORDERED: DIPRIVAN 1% ONE (06:55)
[2017-01-12] MEDS ORDERED: LASIX IV ONE (08:18)
[2017-01-12] MEDS: NS 1,000 ML IV SCH ×2 (08:20→20:42)
[2017-01-12 08:39] LABS: MANUAL DIFF NEEDED? NO
[2017-01-12 08:42] LABS: BASO% 0.3 % (0.0-0.8); EOS# 0.01 X1000 (0.0-0.7); EOS% 0.1 % (0.0-10.0); HEMATOCRIT 37.4 % (37.0-47.0); HEMOGLOBIN 11.7 g/dL (12.0-16.0); LYMPH# 0.79 X1000 (1.2-3.4); LYMPH% 11.6 % (20.5-51.1); MCH 31.9 PG (27-31); MCHC 31.3 g/dL (33-37); MCV 101.9 FL (81-99); MONO# 1.09 X1000 (0.11-0.59); MPV 9.1 FL (7.4-10.4); PLT 262 X1000 (130-400); RBC 3.67 XMIL (4.2-5.4)
[2017-01-12] MEDS ORDERED: CATAPRES-TTS-2 TD SCH (09:00)
--- NOTE | 2017-01-12 09:02 | PROGRESS NOTE ---
DATE: 01/12/2017 SUBJECTIVE: She is intubated, resting, had a good night. PHYSICAL EXAMINATION: Vital Signs: Temperature 98.3 degrees, pulse 90, respirations 19, blood pressure 141/89. HEENT: Pupils were equal and round. CVP less than 6 cm. Lungs: Clear in all lung song. Cardiovascular Examination: Regular rhythm and rate without murmur or S3. Is and Os: Urine output greater than 2 L. LAB: Reviewed from yesterday. We will check some more blood work today. Note that her T4 was a little elevated and TSH depressed. Chest x-ray this morning, mild pulmonary edema. Chest x-ray from yesterday, endotracheal tube was in good position at that time. Underwent surgery yesterday per Dr. Peterson, open reduction and internal fixation of the left femoral ankle fracture-dislocation. ASSESSMENT AND PLAN: 1. Fracture of the ankle, distal fracture, displacement of the left ankle. Underwent open reduction and internal fixation yesterday. On the ventilator secondary to sedation. Continue to try and wean her off the ventilator. 2. Bipolar disease. Aware. Continue her current medications. 3. Diabetes mellitus type 2. We will follow pattern sugars. 4. History of hypothyroidism. At present time, thyroid is a little high so we will back down on her Synthroid. 5. Review of her medications. We will decrease her Synthroid down to 150 mcg a day. I will give her a dose of Lasix based on her chest x-ray, hopefully can wean. We will check electrolytes and CBC this morning. cc: Abhinav Nam MD
[2017-01-12] MEDS: TOPROL XL PO SCH (09:05)
[2017-01-12] MEDS ORDERED: ZOFRAN ONE (09:11)
[2017-01-12] MEDS ORDERED: XYLOCAINE-MPF 2% ONE (09:11)
[2017-01-12] MEDS ORDERED: NORCURON ONE (09:11)
[2017-01-12] MEDS ORDERED: QUELICIN (DOSE) ONE (09:12)
[2017-01-12] MEDS ORDERED: LASIX IV STA (09:48)
[2017-01-12 10:19] LABS: AGAP 12; BUN 4 mg/dL (8-22); CHLORIDE 95 mmol/L (98-107); COSMO 277; MAGNESIUM 1.9 mg/dL (1.5-2.7); POTASSIUM 3.6 mmol/L (3.5-5.1); SODIUM 140 mmol/L (136-145); TCO2 33 mmol/L (25-35)
[2017-01-12 11:17] LABS: ALLEN TEST YES; BE 19.3 mmoll (-3.0-3.0); BLOOD TYPE ARTERIAL; DRAW SITE R RADIAL; METHB 1.5 % (0.0-1.5); O2(CT) 17.1 mL/dL (15.0-23.0); PO2(98.6) 63 mmHg (60-100); SAMPLE BLOOD; SAO2 94.6 % (95.0-100.0); THB 13.3 g/dL (11.5-17.4); pH(98.6) 7.41 (7.35-7.45)
[2017-01-12 11:20] LABS: MODALITY VENTILATOR; PCO2(98.6) 76 mmHg (35-45)
[2017-01-12] MEDS ORDERED: HALDOL IV ONE (12:13)
--- NOTE | 2017-01-12 13:26 | CONSULTATION ---
DATE OF CONSULTATION: 01/12/2017 REQUESTING PHYSICIAN: Dr. Nam. REASON FOR CONSULTATION: Respiratory failure. HISTORY OF PRESENT ILLNESS: Ms. Sosa is a 51-year-old white female, with severe COPD, obesity, who presented to [facility] with an ankle fracture and altered mental status. The patient was hyponatremic upon presentation along with hypercapnic. CT scan of the brain was negative. The patient underwent an open reduction internal fixation of a left bimalleolar ankle fracture dislocation. She has been maintained on mechanical ventilation following surgery with high oxygen requirements. PAST MEDICAL HISTORY: 1. COPD with ongoing tobacco use. 2. Obesity. 3. Hypertension. 4. Sleep apnea. 5. Bipolar disorder. 6. Hypothyroidism. 7. Type 2 diabetes mellitus. 8. Dyslipidemia. 9. Status post cholecystectomy. 10. Tubal ligation. SOCIAL HISTORY: Ongoing tobacco use. No alcohol or drug use reported. FAMILY HISTORY: Not available for review. REVIEW OF SYSTEMS: Cannot be obtained. PHYSICAL EXAMINATION: General: Reveals an obese, white female, on mechanical ventilation. Vital signs: Blood pressure 130/79, heart rate 106, oxygen saturation 91% on 50% FiO2. HEENT: Pupils are equal but sluggish. Oropharynx appears clear with endotracheal tube in place. Neck: Supple. Chest: Reveals prolonged expiratory phase without significant wheezing. Cardiac Exam: Increased rate, regular rhythm. Abdomen: Obese and soft with diminished bowel sounds. Extremities: Reveal trace to 1+ edema with surgical dressings on the left ankle. LABORATORIES: Chest x-ray reveals mild pulmonary edema. Arterial blood gas this morning reveals a pH of 7.52, pCO2 of 51, PO2 of 70, on assist control of 14, FiO2 60%. Tidal volume 600. Sodium 137, potassium 4.3, chloride 89, bicarbonate 42, BUN 2, creatinine 0.5. White blood count 6.80. Hemoglobin 11.7, platelet count 263,000. IMPRESSION: A 51-year-old with severe COPD, chronic hypercapnic respiratory failure, who now has hypercapnic respiratory failure and hypoxemic respiratory failure following surgery. The patient is currently on mechanical ventilation. The patient will receive a Lasix dose and weaning trial will be performed to evaluate for potential for extubation today. RECOMMENDATIONS: 1. Begin ventilator weaning. 2. Increase albuterol and Atrovent nebulizers from q.6 hours to q.4 hours. 3. Diuretic trial. 4. Smoking cessation will be encouraged following extubation. 5. Additional recommendations pending hospital course. cc: Dany Michel MD
[2017-01-12] MEDS: ATIVAN IV PRN (15:38)
[2017-01-12] MEDS ORDERED: DESYREL PO PRN (16:39)
[2017-01-12] MEDS: GLUCOPHAGE XR PO SCH (16:58)
[2017-01-12] MEDS: ABILIFY PO SCH (17:12)
[2017-01-12] MEDS ORDERED: HALDOL IM ONE (19:38)
[2017-01-12] MEDS: SEROQUEL PO SCH (20:43)
[2017-01-12] MEDS: BUSPAR PO SCH (20:43)
[2017-01-12] MEDS: TRILEPTAL PO SCH (20:43)
[2017-01-13] MEDS: ATIVAN IV PRN ×2 (02:07→08:55)
[2017-01-13] MEDS: DUONEB (A & A) INH SCH ×6 (03:35→23:20)
[2017-01-13 04:33] LABS: ALLEN TEST YES; BE 14.9 mmoll (-3.0-3.0); BLOOD TYPE ARTERIAL; DRAW SITE R RADIAL; METHB 0.1 % (0.0-1.5); O2(CT) 15.4 mL/dL (15.0-23.0); PO2(98.6) 85 mmHg (60-100); SAMPLE BLOOD; SAO2 100.8 % (95.0-100.0); THB 11.2 g/dL (11.5-17.4); pH(98.6) 7.47 (7.35-7.45)
[2017-01-13 04:34] LABS: MODALITY BI PAP; PCO2(98.6) 56 mmHg (35-45)
[2017-01-13 05:25] LABS: AGAP 13; ALBUMIN 3.3 g/dL (3.5-5.0); ALKALINE PHOSPHATASE 80 U/L (32-104); BUN 9 mg/dL (8-22); CALCIUM 8.8 mg/dL (8.8-10.2); CHLORIDE 97 mmol/L (98-107); COSMO 285; GOT 52 U/L (10-30); GPT 56 U/L (10-36); MAGNESIUM 1.8 mg/dL (1.5-2.7); POTASSIUM 2.9 mmol/L (3.5-5.1); SODIUM 144 mmol/L (136-145); TCO2 34 mmol/L (25-35); TOTAL BILIRUBIN 0.89 mg/dL (0.20-1.00); TOTAL PROTEIN 6.6 g/dL (6.3-8.3)
[2017-01-13] MEDS: SYNTHROID PO SCH (06:07)
[2017-01-13] MEDS: SODIUM CHLORIDE 0.9% INJ SCH (06:07)
[2017-01-13] MEDS: XARELTO PO SCH (06:07)
[2017-01-13] MEDS: PROTONIX IV SCH (06:07)
--- NOTE | 2017-01-13 07:32 | Diag Imaging Result Document ---
PROCEDURE NAME: CHEST-PORTABLE - 01/13/2017 AP PORTABLE CHEST AT 0500 HOURS: FINDINGS: There is some hazy opacity over the right hemidiaphragm which was not present on 01/12/2017. There is minimal atelectasis in the left costophrenic angle. The patient is rotated somewhat to the left. IMPRESSION: Questionable minimal pulmonary edema versus pneumonia, left lower lobe atelectasis.
[2017-01-13] MEDS: NS 1,000 ML IV SCH ×2 (08:05→23:59)
[2017-01-13] MEDS: POTASSIUM CHLORIDE 20 MEQ/SWI 20 MEQ/100 ML IVPB IV SCH ×2 (08:26→10:55)
[2017-01-13] MEDS: ABILIFY PO SCH (08:54)
[2017-01-13] MEDS: TOPROL XL PO SCH (08:54)
[2017-01-13] MEDS: TRILEPTAL PO SCH ×2 (08:54→20:12)
[2017-01-13] MEDS: BUSPAR PO SCH ×2 (08:54→20:12)
[2017-01-13] MEDS: ZOLOFT PO SCH (08:54)
[2017-01-13] MEDS ORDERED: HALDOL IV PRN (09:39)
--- NOTE | 2017-01-13 09:47 | PROGRESS NOTE ---
DATE: 01/13/2017 SUBJECTIVE: She is on the BiPAP, resting. She is sedated, sleeping. She was very confused and agitated yesterday. Put her back on her home medications. She has an underlying history of bipolar, I believe, and I will put her back on the Zyprexa and trazodone. Used Haldol p.r.n. Appears to be moving air comfortably. PHYSICAL EXAMINATION: Vital Signs: Temperature 98.6 degrees, pulse 100, respirations 22, blood pressure 145/74. HEENT: Pupils are equal and round. CVP less than 6 cm. Lungs: Clear in all lung song. Cardiovascular Examination: Regular rhythm and rate without murmur or S3. Is and Os: Good urine output, 5 L. LABORATORY DATA: Reviewed lab from yesterday. White count 6800, hematocrit 37, platelet count 262,000. Lab from this morning, sodium 144, potassium 2.9, chloride 97, bicarb 37, BUN 9, creatinine 0.4, blood sugars 117, 110, 100, 86, and 77. Chest x-ray from this morning, questionable minimal pulmonary edema versus pneumonia, left lower lobe atelectasis. ASSESSMENT AND PLAN: A 51-year-old female with severe chronic obstructive pulmonary disease and obesity. She came to [place]. Had an ankle fracture and altered mental status. The patient was hyponatremic on presentation and hypercapnic. CT of the brain was negative. She underwent open reduction and internal fixation of a left bimalleolar ankle fracture with dislocation and was maintained on mechanical ventilator. We were able to wean. Dr. Michel following the case. Yesterday, had a lot of confusion and delirium. Tried some Ativan. Also tried some Haldol. Continue BiPAP. Put her back on her home medications. We will supplement some potassium. She is back on trazodone 150 mg at bedtime. We have given her a little bit of Lasix because it appears that she has some pulmonary venous hypertension. She is back on her Seroquel 400 mg. cc: Abhinav Nam MD
[2017-01-13] MEDS: MORPHINE IV PRN ×3 (09:54→19:47)
[2017-01-13] MEDS: GLUCOPHAGE XR PO SCH (16:22)
[2017-01-13] MEDS: SEROQUEL PO SCH (20:11)
[2017-01-14] MEDS: DUONEB (A & A) INH SCH ×6 (03:15→23:41)
[2017-01-14 05:25] LABS: AGAP 10; BUN 9 mg/dL (8-22); CHLORIDE 99 mmol/L (98-107); COSMO 281; POTASSIUM 3.5 mmol/L (3.5-5.1); SODIUM 142 mmol/L (136-145); TCO2 33 mmol/L (25-35)
[2017-01-14] MEDS: SODIUM CHLORIDE 0.9% INJ SCH (06:14)
[2017-01-14] MEDS: PROTONIX IV SCH (06:14)
[2017-01-14] MEDS: SYNTHROID PO SCH (06:15)
[2017-01-14] MEDS: XARELTO PO SCH (06:15)
[2017-01-14] MEDS: MORPHINE IV PRN ×4 (06:15→20:46)
--- NOTE | 2017-01-14 07:36 | Diag Imaging Result Document ---
PROCEDURE NAME: CHEST-PORTABLE - 01/14/2017 ERECT AP PORTABLE CHEST AT 0540 HOURS: FINDINGS: The inspiration is less optimal than on the previous study of 01/13/2017. Otherwise, there has been no significant change. IMPRESSION: Stable chest.
[2017-01-14 09:05] LABS: ALLEN TEST YES; BE 8.6 mmoll (-3.0-3.0); BLOOD TYPE ARTERIAL; DRAW SITE R RADIAL; METHB 1.2 % (0.0-1.5); O2(CT) 15.3 mL/dL (15.0-23.0); PO2(98.6) 74 mmHg (60-100); SAMPLE BLOOD; SAO2 96.8 % (95.0-100.0); THB 11.6 g/dL (11.5-17.4); pH(98.6) 7.38 (7.35-7.45)
[2017-01-14 09:06] LABS: PCO2(98.6) 60 mmHg (35-45)
[2017-01-14 09:07] LABS: MODALITY VENTIMASK
[2017-01-14] MEDS: BUSPAR PO SCH ×2 (09:42→20:47)
[2017-01-14] MEDS: TOPROL XL PO SCH (09:42)
[2017-01-14] MEDS: ZOLOFT PO SCH (09:42)
[2017-01-14] MEDS: TRILEPTAL PO SCH ×2 (09:42→20:47)
[2017-01-14] MEDS: ABILIFY PO SCH (09:43)
--- NOTE | 2017-01-14 12:05 | PROGRESS NOTE ---
DATE: 01/14/2017 SUBJECTIVE: Patient was awake and alert. She is talking about wanting to go home. Awake and oriented. She is still in the unit, bed 14. OBJECTIVE: General: Appears to be comfortable and breathing comfortably. Vital Signs: Temperature 98.1 degrees, pulse 112, respirations 27, blood pressure 114/74. Lungs: Clear in all lung song, anterior and lateral. Cardiovascular: Regular rhythm and rate, without murmur or S3. Abdomen: Soft. Integument: Skin is warm and dry. URINE OUTPUT: Over 2 L. LABORATORIES: Blood sugars have been good 71, 81, 73. Laboratories reviewed from 01/12/2017. Electrolytes from this morning: Sodium 142, potassium 3.5, chloride 99, bicarbonate 33, BUN 9, creatinine 0.4. IMAGING: Chest x-ray from this morning: Stable test. ASSESSMENT AND PLAN: A 51-year-old with severe chronic obstructive pulmonary disease and obesity who presented to [place] and has been transferred here. She had an ankle fracture, altered mental status, and had a little bit hyponatremia and hypercapnia when she presented. CT of the brain was negative. Underwent internal reduction and internal fixation of bimalleolar ankle fracture and was maintained on the mechanical ventilator through the next day, able to wean. She has had some delirium and confusion. We got her back on her baseline medications and appears to be doing better. She is on trazodone 150 mg at bedtime, Zoloft 100 mg q.a.m., Xarelto 10 mg q.24 hours, Seroquel 400 mg at bedtime, Protonix 40 mg q.24 hours, Trileptal 300 mg b.i.d., metoprolol 25 mg daily, metformin ER 500 mg a day, Synthroid 150 mcg a day, clonidine patch 1 weekly, BuSpar 50 mg b.i.d., Abilify 5 mg q.a.m. She may be able to be transferred to the floor today. Doing better. We have been giving her morphine for pain 2-4 mg IV q.3 hours. Will see how we do with delirium. She has required 4-point restraints. From yesterday to today, appears much more cooperative, awake, and alert. cc: Abhinav Nam MD
[2017-01-14] MEDS: NS 1,000 ML IV SCH ×2 (13:22→20:48)
[2017-01-14] MEDS: GLUCOPHAGE XR PO SCH (17:11)
[2017-01-14] MEDS: SEROQUEL PO SCH (20:47)
[2017-01-15] MEDS: NS 1,000 ML IV SCH ×3 (04:15→23:08)
[2017-01-15] MEDS: PROTONIX IV SCH (06:40)
[2017-01-15] MEDS: XARELTO PO SCH (06:40)
[2017-01-15] MEDS: SYNTHROID PO SCH (06:40)
[2017-01-15] MEDS ORDERED: DUONEB (A & A) ONE (07:08)
[2017-01-15] MEDS: DUONEB (A & A) INH SCH ×5 (07:22→23:02)
[2017-01-15] MEDS: BUSPAR PO SCH ×2 (09:03→23:09)
[2017-01-15] MEDS: ZOLOFT PO SCH (09:04)
[2017-01-15] MEDS: ABILIFY PO SCH (09:04)
[2017-01-15] MEDS: MORPHINE IV PRN ×4 (09:04→23:07)
[2017-01-15] MEDS: TRILEPTAL PO SCH ×2 (09:04→23:10)
[2017-01-15] MEDS: TOPROL XL PO SCH (09:05)
[2017-01-15] MEDS: BENADRYL PO PRN ×3 (12:34→23:10)
--- NOTE | 2017-01-15 12:47 | PROGRESS NOTE ---
DATE: 01/15/2017 She states she does feel better. She wants to sit up in a chair. She would like to have some Benadryl for itching. Temp 98.3 degrees, pulse 94, respirations 14, blood pressure 134/86. CVP less than 6 cm.Lungs: Clear in all lung song. Cardiovascular: Regular rhythm and rate without murmur or S3. Abdomen: Soft. Skin: Is warm and dry. Urine output 4 L. Blood sugars 71, 75, 96. Chest x-ray from yesterday, stable chest. ASSESSMENT AND PLAN: History of COPD and obesity and obstructive chronic obstructive pulmonary disease with some sleep apnea as well. Had an ankle fracture. Underwent internal fixation and had prolonged hypercapnia and able to extubate the following day. Had some confusion in the ICU but this is much better back on her original medications and maintenance medications. Does have bipolar disorder. Doing better. See if we can elevate her foot and hopefully get her to rehab, I think we are thinking Tuesday, today is Tuesday. She is on Xarelto 10 mg a day. Zoloft 100 mg a day. Trazodone 150 mg at bedtime. Seroquel 400 mg at bedtime. Protonix 40 mg IV q.24 hours. Trileptal 300 mg b.i.d. Metoprolol succinate 25 mg a day. Glucophage 500 mg with supper. Synthroid 150 mcg daily. Clonidine patch, she is on 1 patch q.week. BuSpar 50 mg b.i.d. Abilify 5 mg q.a.m. and her IV fluids are going at 83 mL an hour. I am going to turn that down to keep vein open. I will let her try some Benadryl. Hopefully sit her up in a chair. Physical therapy involved. cc: Abhinav Nam MD
[2017-01-15] MEDS: GLUCOPHAGE XR PO SCH (16:11)
[2017-01-15] MEDS: SEROQUEL PO SCH (23:08)
[2017-01-16] MEDS: DUONEB (A & A) INH SCH ×6 (04:12→23:34)
[2017-01-16] MEDS: SYNTHROID PO SCH (06:33)
[2017-01-16] MEDS: PROTONIX IV SCH (06:33)
[2017-01-16] MEDS: BENADRYL PO PRN ×5 (06:33→21:27)
[2017-01-16] MEDS: XARELTO PO SCH (06:33)
[2017-01-16] MEDS: SODIUM CHLORIDE 0.9% INJ SCH (06:33)
[2017-01-16] MEDS: MORPHINE IV PRN ×5 (06:35→21:26)
[2017-01-16] MEDS: BUSPAR PO SCH ×2 (09:58→21:27)
[2017-01-16] MEDS: TOPROL XL PO SCH (09:59)
[2017-01-16] MEDS: ABILIFY PO SCH (09:59)
[2017-01-16] MEDS: ZOLOFT PO SCH (09:59)
[2017-01-16] MEDS: TRILEPTAL PO SCH ×2 (09:59→21:27)
--- NOTE | 2017-01-16 16:46 | PROGRESS NOTE ---
DATE: 01/16/2017 SUBJECTIVE: Ms. Sosa feels very good and she is anxious to go therapy tomorrow. No complaints. OBJECTIVE: Vital signs: Afebrile, temp 98.8 degrees, pulse 84, respirations 14, blood pressure 135/77. Neck: CVP less than 6 cm. Lungs: Clear in all lung song. Cardiovascular: Regular rhythm and rate without murmur or S3. Intake and output: Urine output about 4 L. LAB: From the reviewed. Chemistries and blood sugars have done very good, basically close to normal. ASSESSMENT AND PLAN: 1. History of chronic obstructive pulmonary disease, obesity, obstructive apnea. Doing very well. She had a prolonged ventilatory period after surgery. 2. Ankle fracture. Underwent internal fixation. Has done very well. Alert and oriented and cooperative. She is on the Xarelto. I think she will be ready for discharge tomorrow. She would like to go to rehab. REVIEW OF ORDERS: I do not see anything to change. She is complaining of some itching around the cast. We will get social service involved and see what they would like to do for rehab or to go home with rehab. cc: Abhinav Nam MD
[2017-01-16] MEDS: GLUCOPHAGE XR PO SCH (17:43)
[2017-01-16] MEDS: SEROQUEL PO SCH (21:27)
[2017-01-17] MEDS: BENADRYL PO PRN ×5 (01:52→19:41)
[2017-01-17] MEDS: DUONEB (A & A) INH SCH ×6 (02:40→22:42)
[2017-01-17] MEDS: SYNTHROID PO SCH ×2 (05:46→10:54)
[2017-01-17] MEDS: PROTONIX IV SCH ×2 (05:47→10:53)
[2017-01-17] MEDS: XARELTO PO SCH (05:47)
[2017-01-17] MEDS: MORPHINE IV PRN ×4 (06:27→19:40)
[2017-01-17] MEDS: BUSPAR PO SCH ×2 (08:39→22:05)
[2017-01-17] MEDS: ZOLOFT PO SCH (08:40)
[2017-01-17] MEDS: ABILIFY PO SCH (08:40)
[2017-01-17] MEDS: TOPROL XL PO SCH (08:40)
[2017-01-17] MEDS: TRILEPTAL PO SCH ×2 (08:40→22:06)
--- NOTE | 2017-01-17 12:20 | DISCHARGE SUMMARY ---
ADMISSION DATE: 01/10/2017 DISCHARGE DATE: 01/18/2017 HISTORY: This is a 51-year-old who presented to [facility] for complaints of a fall. She suffered left ankle pain. Upon arrival to ER noted the patient was lethargic. She did become more alert after arrival, although still had some confusion. She did know her name but did not know the month or the year or the time. PAST MEDICAL HISTORY: Was obtained. 1. She has a history of COPD. 2. Hypertension. 3. Sleep apnea. She is on O2 at home. 4. Bipolar illness for which she is taking medications. Not sure about how she has been taking recent medications. 5. Hypothyroidism. 6. Chronic hypercapnic respiratory failure. 7. Obesity. 8. Diabetes mellitus type 2. 9. Hyperlipidemia. PAST SURGICAL HISTORY: 1. Status post cholecystectomy. 2. Tubal ligation in the past. HOSPITAL COURSE: She suffered a left try malleolar ankle fracture. The patient was splinted and underwent internal fixation per Dr. Peterson on 01/11. She had open reduction internal fixation left bimalleolar ankle fracture. She did well postop. We did have to leave her on the ventilator because of her chronic obstructive and COPD disease. We were able to wean her and put her back on her medication for bipolar. She did have some delirium for about a 24 hour period and then things improved. [facility] she was ready go to rehab on 01/17/2017. She did ask for some Benadryl for the itching on her leg at the cast. DISCHARGE MEDICATION: Tylenol as needed, DuoNeb treatments q.4 p.r.n., Abilify 5 mg q.a.m., BuSpar 15 mg b.i.d., Catapres patch 0.2 mg weekly. She was getting Benadryl 25 mg q.4-6 hours p.r.n. Synthroid 150 mcg daily, Glucophage 500 mg p.o. with supper, Toprol XL 25 mg daily, Trileptal 300 mg b.i.d., Protonix 40 mg we will just give her 1 p.o. daily, Seroquel 400 mg at bedtime, Xarelto 10 mg 24 daily and I think we will continue that for I believe another 2 weeks, Zoloft 100 mg a day, trazodone 150 mg at bedtime p.r.n. sleep, and she will have her O2. cc: Abhinav Nam MD
--- NOTE | 2017-01-17 13:10 | PROGRESS NOTE ---
DATE: 01/17/2017 SUBJECTIVE: Ms. Sosa is feeling better. The only main complaint she has is that her cast is still itching. She would like to go to rehab. She would prefer to go to [facility]. OBJECTIVE: Vital Signs: Afebrile. Temperature 98 degrees, pulse 78, respirations 20, blood pressure 133/78. Lungs: Clear in all lung song. Cardiovascular: Regular rhythm and rate without murmur or S3. Abdomen: Soft. Skin: Warm and dry. Urine Output: 1800 mL. LABORATORY DATA: Blood sugar 93, 83, 73. ASSESSMENT AND PLAN: 1. History of chronic obstructive pulmonary disease and obstructive apnea, doing well. Breathing comfortably. She does have O2 at home for chronic hypoxia. 2. Ankle fracture. She underwent internal fixation. This is healing. She would like to go to rehabilitation. 3. History of primary hypothyroidism, which appears euthyroid now. Getting Synthroid. 4. I reviewed her present orders. She does have a history of bipolar illness. She is back on her medications. She has diabetes mellitus type 2. Sugars have been well controlled, in fact, almost pretty much normal sugars. She is requesting Benadryl for the itching on her right foot, and we are giving her Benadryl, which I think she would like more, but I have cautioned her against taking more than 4 Benadryl in a day. cc: Abhinav Nam MD
[2017-01-17] MEDS: GLUCOPHAGE XR PO SCH (16:29)
[2017-01-17] MEDS: SEROQUEL PO SCH (22:05)
[2017-01-18] MEDS: DUONEB (A & A) INH SCH ×3 (03:20→11:20)
[2017-01-18] MEDS: SYNTHROID PO SCH (06:02)
[2017-01-18] MEDS: SODIUM CHLORIDE 0.9% INJ SCH (06:03)
[2017-01-18] MEDS: PROTONIX IV SCH (06:03)
[2017-01-18] MEDS: XARELTO PO SCH (06:03)
[2017-01-18 07:42] VITALS: BP 135/85
[2017-01-18] MEDS: BUSPAR PO SCH (08:02)
[2017-01-18] MEDS: ABILIFY PO SCH (08:02)
[2017-01-18] MEDS: TRILEPTAL PO SCH (08:02)
[2017-01-18] MEDS: ZOLOFT PO SCH (08:02)
[2017-01-18] MEDS: TOPROL XL PO SCH (08:02)
[2017-01-18] MEDS: MORPHINE IV PRN (08:04)
[2017-01-18] MEDS: BENADRYL PO PRN (08:04)
[2017-01-19] MEDS ORDERED: SYNTHROID PO SCH (07:00)
== END 2017-01-18 11:32 ==
LOC: P.ED 19:54 → SUATTDRO 22:11 → 4N 22:11 → ICU 22:52 → 4N 01-14 18:46
PROVIDERS: ATTEND Emergency Medicine

== ENCOUNTER 2017-03-08 10:25 | Inpatient (IN) ==
[2017-03-08] MEDS ORDERED: NARCAN ONE ×2 (10:26)
[2017-03-08] MEDS ORDERED: NARCAN IV ONE (10:31)
--- NOTE | 2017-03-08 10:35 | EKG Report ---
Test Performed on : 03/08/2017 10:24:33 AM Test Reason : Suspected Overdose Blood Pressure : / mmHG Vent. Rate : 109 BPM Atrial Rate : 109 BPM P-R Int : 156 ms QRS Dur : 084 ms QT Int : 346 ms P-R-T Axes : 072 086 068 degrees QTc Int : 465 ms Sinus tachycardia. Otherwise normal ECG When compared with ECG of 01-FEB-2017 03:28, No significant change was found Unconfirmed Result
[2017-03-08] MEDS ORDERED: ROMAZICON IV ONE (10:50)
[2017-03-08 11:05] LABS: MANUAL DIFF NEEDED? NO
[2017-03-08 11:08] LABS: BASO% 0.1 % (0.0-0.8); EOS# 0.01 X1000 (0.0-0.7); EOS% 0.1 % (0.0-10.0); HEMATOCRIT 41.2 % (37.0-47.0); IMM GRAN# 0.12 X1000 (0.0-0.04); LYMPH% 8.4 % (20.5-51.1); MCH 31.9 PG (27-31); MCHC 31.6 g/dL (33-37); MCV 101.2 FL (81-99); MONO% 9.2 % (1.7-9.3); MPV 9.3 FL (7.4-10.4); NEUT% 81.2 % (42.2-75.2); PLT 351 X1000 (130-400); RBC 4.07 XMIL (4.2-5.4)
[2017-03-08 11:18] LABS: ALLEN TEST NO; BLOOD TYPE ARTERIAL; DRAW SITE R BRACHIAL; O2(CT) 14.7 mL/dL (15.0-23.0); PO2(98.6) 58 mmHg (60-100); SAMPLE BLOOD; SAO2 94.6 % (95.0-100.0); THB 12.8 g/dL (11.5-17.4)
[2017-03-08 11:20] LABS: MODALITY CANNULA; pH(98.6) 7.17 (7.35-7.45)
[2017-03-08 11:21] LABS: PCO2(98.6) 138 mmHg (35-45)
[2017-03-08 11:39] LABS: ACETAMINOPHEN < 1.2 ug/mL (10-30); AGAP 4; ALBUMIN 4.1 g/dL (3.5-5.0); ALKALINE PHOSPHATASE 97 U/L (32-104); BUN 4 mg/dL (8-22); CALCIUM 9.4 mg/dL (8.8-10.2); CHLORIDE 88 mmol/L (98-107); COSMO 269; GOT 16 U/L (10-30); GPT 16 U/L (10-36); POTASSIUM 4.5 mmol/L (3.5-5.1); SODIUM 135 mmol/L (136-145); TCO2 43 mmol/L (25-35); TOTAL BILIRUBIN 0.17 mg/dL (0.20-1.00); TOTAL PROTEIN 7.4 g/dL (6.3-8.3)
[2017-03-08] MEDS ORDERED: NS 1,000 ML IV ONE (12:04)
[2017-03-08 12:26] LABS: UR AMPHETAMINES QUAL NONE DETECTED (NONE DETECT); UR BARBITUATES QUAL NONE DETECTED (NONE DETECT); UR BENZODIAZEPIN QUAL NONE DETECTED (NONE DETECT); UR CANNABINOIDS QUAL NONE DETECTED (NONE DETECT); UR COCAINE QUAL NONE DETECTED (NONE DETECT); UR OPIATES QUAL NONE DETECTED (NONE DETECT); UR OXYCODONE QUAL NONE DETECTED (NONE DETECT); UR PCP QUAL NONE DETECTED (NONE DETECT)
[2017-03-08 12:40] LABS: UR METHADONE QUAL PRESUMPTIVE POSITIVE (NONE DETECT)
--- NOTE | 2017-03-08 12:52 | Diag Imaging Result Doc PS360 ---
EXAM: HEAD W/O CONTRAST - 03/08/2017 HISTORY: ams TECHNIQUE: Dose reduction protocol COMPARISON: 01/11/2017 FINDINGS: There is no evidence of intracranial hemorrhage, mass effect, midline shift, or hydrocephalus. There is mild ventricular asymmetry which is stable and compatible with normal variation. There is no evidence of infarct, although acute infarcts may not be immediately visible. IMPRESSION: No visible acute intracranial abnormality. No hemorrhage or mass effect. Electronically signed by Milan Jung 03/08/2017 12:50 PM
[2017-03-08] MEDS ORDERED: ATIVAN ONE (12:57)
[2017-03-08] MEDS ORDERED: ATIVAN IV ONE (13:03)
--- NOTE | 2017-03-08 14:02 | PROVIDER DOCUMENTATION ---
This chart was entered by Ngoc Dee Scribe, acting as scribe for Jesus Ruff MD. [id number] Abuse/Overdose - General Stated Complaint: unresponsive Time Seen by Provider: 03/08/17 10:26 Source: patient Allergies/Adverse Reactions: Allergies Allergy/AdvReac Type Severity Reaction Status Date / Time No Known Allergies Allergy Verified 01/31/17 23:56 Home Medications: Home Medication List Medication Instructions Recorded Confirmed Last Taken Type Budesonide/Formoterol Fumarate 1 puff INH DAILY PRN 02/23/14 03/08/17 10/14/16 History [Symbicort 160-4.5 Mcg Inhaler] Buspirone [Buspar] 15 mg PO BID 02/23/14 03/08/17 10/21/16 09:00 History 15mg Ranolazine [Ranexa] 1,000 mg PO BID 04/17/15 03/08/17 10/21/16 09:00 History 1000mg Albuterol [Albuterol Neb] 2.5 mg INH RTQ6H 10/21/16 03/08/17 10/14/16 History Oxcarbazepine [Trileptal] 300 mg PO BID 30 Days 10/29/16 03/08/17 Unknown Rx Quetiapine [Seroquel] 400 mg PO QHS 30 Days 10/29/16 03/08/17 Unknown Rx Sertraline [Zoloft] 100 mg PO QAM 30 Days 10/29/16 03/08/17 Unknown Rx Aripiprazole [Abilify] 5 mg PO QAM 11/07/16 03/08/17 Unknown History Aspirin [Aspir-Low] 81 mg PO DAILY 11/07/16 03/08/17 Unknown History Folic Acid 1 mg PO DAILY 11/07/16 03/08/17 Unknown History Levothyroxine Sodium 175 mcg PO DAILY@0700 11/07/16 03/08/17 Unknown History Metformin HCl [Metformin HCl ER] 500 mg PO WSUPPER 11/07/16 03/08/17 Unknown History Metoprolol Succinate 25 mg PO DAILY 11/07/16 03/08/17 Unknown History Omeprazole 20 mg PO DAILY 11/07/16 03/08/17 Unknown History Pravastatin Sodium 40 mg PO QHS 11/07/16 03/08/17 Unknown History Roflumilast [Daliresp] 500 microgm PO DAILY 11/07/16 03/08/17 Unknown History Trazodone HCl 150 mg PO QHS PRN 11/07/16 03/08/17 Unknown History Albuterol 2.5MG/Ipratrop 0.5MG 3 ml INH RTQ4H neb 01/17/17 03/08/17 Unknown Rx [Duoneb (A & A)] Ergocalciferol (Vitamin D2) 50,000 unit PO DIRECTED 03/08/17 03/08/17 Unknown History [Vitamin D2] Fluconazole 100 mg PO DAILY 03/08/17 03/08/17 Unknown History Meloxicam [Mobic] 15 mg PO DAILY 03/08/17 03/08/17 Unknown History Meloxicam [Mobic] 15 mg PO DAILY 03/08/17 03/08/17 Unknown History Ondansetron HCl [Zofran] 4 mg PO PRN PRN 03/08/17 03/08/17 Unknown History Roflumilast [Daliresp] 500 mcg PO DAILY 03/08/17 03/08/17 Unknown History Tramadol HCl [Tramadol HCl] 50 mg PO TID 03/08/17 03/08/17 Unknown History - History of Present Illness-Drug/Alcohol Nature of Presenting Problem: Pt is a 51 year old female who came to the ED via EMS with a cc of being found unresponsive. Pt roommate reports that the pt just moved in recently. The roommate reports that the pt is bipolar, the roommate thinks that the pt took too many of her medication. Pt was given a breathing treatment and is responsive to a sternal rub. This episode of drinking or use began:: just prior to arrival Severity: reports: mild Situational problems related to:: reports: N/A Any injuries associated with this episode of intoxication?: No Similar Symptoms Previously?: No Recently seen or treated by another doctor?: No - Overdose Suicide Risk Assessment: bi-polar Clinician's estimation of suicide risk?: uncertain risk Review of Systems - Adult - REVIEW OF SYSTEMS - ADULT ROS:: unobtainable per condition Constitutional: reports: see HPI Past History - Adult - PAST MEDICAL HISTORY-ADULT Review of Records: reports: Old Records Reviewed, Nursing Assessment Review, Medications Reviewed, Social history reviewed & non-contributory. Major Childhood Illnesses: reports: denies history Cardiovascular: reports: HTN Respiratory: reports: asthma, COPD, sleep apnea (bi pap) Gastrointestinal: reports: denies history Obstetrical/Gynecological: reports: denies history Genitourinary: reports: denies history Musculoskeletal: reports: denies history Neurological: reports: denies history Psychiatric: reports: bipolar Endocrine/Immune: reports: thyroid disorder Other Conditions: reports: denies history - PRIOR SURGERIES/PROCEDURES Surgical/Procedure History: reports: cholecystectomy, BTL, orthopedic (extremity ) - IMMUNIZATION STATUS Childhood Immunizations: See Nurse Assessment Flu Vaccine: See Nurse Assessment - FAMILY HISTORY Family History: reviewed, not pertinent Physical Exam-General - PHYSICAL EXAM-ADULT Initial Vital Signs Reviewed: Yes - CONSTITUTIONAL General Appearance: obese, lethargic - EYES Eyes: other (pin point pupils) - HEAD, EARS, NOSE, MOUTH & THROAT HENMT: normocephalic/atraumatic - NECK Neck: non-tender - RESPIRATORY Respiratory: chest non-tender, lungs clear - CARDIOVASCULAR Cardiovascular: normal peripheral pulses, regular rate, rhythm - GASTROINTESTINAL (ABDOMEN) Abdominal Exam: normal bowel sounds, soft - MUSCULOSKELETAL Back Exam: normal inspection - SKIN Integumentary: warm/dry - PSYCHIATRIC Psych/Mental Status: disoriented x 3 Progress - PLAN OF CARE/RESULTS Progress/Plan/Lab Results: Vital Signs - 8 hr 03/08/17 10:20 03/08/17 10:38 03/08/17 10:52 Temperature 97.6 F Pulse Rate 109 H 104 H 107 H Respiratory Rate 26 H 17 24 Blood Pressure 136/86 141/83 141/91 O2 Sat by Pulse Oximetry 88 L 100 91 L 03/08/17 11:17 03/08/17 11:39 03/08/17 11:41 Temperature Pulse Rate 102 H 102 H 96 H Respiratory Rate 17 20 22 Blood Pressure 127/89 105/47 O2 Sat by Pulse Oximetry 93 L 92 L 92 L 03/08/17 12:45 03/08/17 13:00 Temperature Pulse Rate 98 H 94 H Respiratory Rate 20 18 Blood Pressure 129/61 124/81 O2 Sat by Pulse Oximetry 91 L 92 L Laboratory Results - last 24 hr 03/08/17 03/08/17 03/08/17 10:40 10:40 10:40 WBC 11.95 H RBC 4.07 L Hgb 13.0 Hct 41.2 MCV 101.2 H MCH 31.9 H MCHC 31.6 L RDW Std Deviation 13.0 Plt Count 351 MPV 9.3 Immature Gran % (Auto) 1.0 H Neut % (Auto) 81.2 H Lymph % (Auto) 8.4 L [place] % (Auto) 9.2 Eos % (Auto) 0.1 Baso % (Auto) 0.1 Immature Gran # (Auto) 0.12 H Neut # (Auto) 9.71 H Lymph # (Auto) 1.00 L [place] # (Auto) 1.10 H Eos # (Auto) 0.01 Baso # (Auto) 0.01 Specimen Type Sample Site pH pCO2 pO2 HCO3 Base Excess Oxyhemoglobin ABG O2 Sat (Calculated) ABG O2 Saturation ABG Carboxyhemoglobin ABG Methemoglobin Abhinav Test Total Hemoglobin Lactate Liter Flow Blood Gas Modality Sodium 135 L Potassium 4.5 Chloride 88 L Carbon Dioxide 43 H Anion Gap 4 BUN 4 L Creatinine 0.4 L Estimated GFR/1.73 m2 > 60 BUN/Creatinine Ratio 10 Glucose 129 H Calculated Osmolality 269 Calcium 9.4 Total Bilirubin 0.17 L AST 16 ALT 16 Alkaline Phosphatase 97 Total Protein 7.4 Albumin 4.1 Globulin 3.3 Albumin/Globulin Ratio 1.2 Urine Test Salicylates < 3.00 L Urine Opiates Screen Ur Oxycodone Screen Ur Methadone, Qual Acetaminophen < 1.2 L Ur Barbiturates Screen Ur Phencyclidine Scrn Ur Amphetamines Screen U Benzodiazepines Scrn Urine Cocaine Screen U Cannabinoids Screen Plasma/Serum Ethyl Alc 03/08/17 03/08/17 03/08/17 10:46 10:57 10:57 WBC RBC Hgb Hct MCV MCH MCHC RDW Std Deviation Plt Count MPV Immature Gran % (Auto) Neut % (Auto) Lymph % (Auto) [place] % (Auto) Eos % (Auto) Baso % (Auto) Immature Gran # (Auto) Neut # (Auto) Lymph # (Auto) [place] # (Auto) Eos # (Auto) Baso # (Auto) Specimen Type ARTERIAL Sample Site R BRACHIAL pH 7.17 L* pCO2 138 H* pO2 58 L HCO3 37.0 H Base Excess 16.0 H Oxyhemoglobin 81.6 L* ABG O2 Sat (Calculated) 14.7 L ABG O2 Saturation 94.6 L ABG Carboxyhemoglobin 12.80 H* ABG Methemoglobin 1.0 Abhinav Test NO Total Hemoglobin 12.8 Lactate 0.40 L Liter Flow 2.0 Blood Gas Modality CANNULA Sodium Potassium Chloride Carbon Dioxide Anion Gap BUN Creatinine Estimated GFR/1.73 m2 BUN/Creatinine Ratio Glucose Calculated Osmolality Calcium Total Bilirubin AST ALT Alkaline Phosphatase Total Protein Albumin Globulin Albumin/Globulin Ratio Urine Test NEGATIVE Salicylates Urine Opiates Screen NONE DETECTED Ur Oxycodone Screen NONE DETECTED Ur Methadone, Qual PRESUMPTIVE POSITIVE A Acetaminophen Ur Barbiturates Screen NONE DETECTED Ur Phencyclidine Scrn NONE DETECTED Ur Amphetamines Screen NONE DETECTED U Benzodiazepines Scrn NONE DETECTED Urine Cocaine Screen NONE DETECTED U Cannabinoids Screen NONE DETECTED Plasma/Serum Ethyl Alc Orders Category Date Time Status Cardiac Monitoring DIRECTED Care 03/08/17 10:31 Active Finger Stick Blood Sugar (ED) DIRECTED Care 03/08/17 10:31 Active Saline Loc DIRECTED Care 03/08/17 10:31 Active CHEST-PORTABLE [RAD] Stat Exams 03/08/17 13:57 Ordered HEAD W/O CONTRAST [CT] Stat Exams 03/08/17 11:31 Completed ABG [RESP] Routine Lab 03/08/17 10:57 Completed ABG [RESP] Routine Lab 03/08/17 13:58 Ordered ACETAMINOPHEN [TDM] Stat Lab 03/08/17 10:40 Completed ALCOHOL BLOOD Stat Lab 03/08/17 10:40 Completed CBC WITH ELECTRONIC DIFF [HEME] Stat Lab 03/08/17 10:40 Completed COMPREHENSIVE METABOLIC PANEL [CHEM] Stat Lab 03/08/17 10:40 Completed TEST-URINE [PREG] Stat Lab 03/08/17 10:46 Completed SALICYLATES [TDM] Stat Lab 03/08/17 10:40 Completed URINE DRUG SCREEN Stat Lab 03/08/17 10:57 Completed 0.9% Sodium Chloride Inj [Ns] 1,000 ml Med 03/08/17 12:04 Discontinued IV 999 mls/hr Flumazenil [Romazicon] Med 03/08/17 10:50 Discontinued 0.2 mg IV NOW ONE Lorazepam [Ativan] Med 03/08/17 13:03 Discontinued 1 mg IV NOW ONE Lorazepam [Ativan] Med 03/08/17 12:57 Discontinued 2 mg .ROUTE .STK-MED ONE Naloxone [Narcan] Med 03/08/17 10:31 Discontinued 2 mg IV NOW ONE Pulse Oximetry Stat Oth 03/08/17 10:31 Completed EKG [EKG] Stat Ther 03/08/17 10:31 Draft Result Diagrams: 03/08/17 10:40 03/08/17 10:40 - EKG 1 Time of EKG reading by physician:: 10:24 EKG Read and Signed by:: Jesus Ruff EKG Interpretation (*Must complete 3 of following elements*): Normal Rate: 109 Rhythm: sinus tachycardia - CT/MRI 1 CT Study: Head (no visible acute intracranial abnormality. no hemorrhage or mass effect.) - CONSULTS/PCP/HOSPITALIST Notification #1 *Consult/PCP/Hospitalist*: Ndiaye Time Discussed: 13:55 Consult Disposition: Admit Departure - Departure Date of Disposition Decision: 03/08/17 Time of Disposition Decision: 13:59 DIAGNOSIS: Respiratory failure with hypoxia and hypercapnia Disposition: ADMITTED INPATIENT 09 Certified Medical Emergency: Emergent Condition: Critical Referrals and Follow-Ups: None,PCP [Primary Care Provider] - - Critical Care Note This patient required my direct & personal management of CC.: Yes Total Time (mins): 120 Critical Care Statement: This patient required my direct personal management to treat or rule out processes, the absence of which, could potentiallly result in sudden, clinically significant life or limb threatening deterioration. This chart was documented by the indicated scribe, (Ngoc Dee Scribe) and accurately reflects the services I performed and decisions made by me, Jesus Ruff MD, as attested by the provider's signature.
--- NOTE | 2017-03-08 14:13 | Diag Imaging Result Doc PS360 ---
EXAM: CHEST-PORTABLE HISTORY: resp failure TECHNIQUE: Portable upright COMPARISON: 02/01/2017 FINDINGS: The lungs are well expanded. The heart is not enlarged. The vessels are not distended. No pneumonia. There is a calcified granuloma in the left base. No pleural effusions identified. IMPRESSION: Negative chest. Electronically signed by Slim Ackerman 03/08/2017 2:11 PM
[2017-03-08 14:43] LABS: ALLEN TEST YES; BE 15.6 mmoll (-3.0-3.0); BLOOD TYPE ARTERIAL; DRAW SITE R RADIAL; METHB 0.4 % (0.0-1.5); O2(CT) 14.3 mL/dL (15.0-23.0); PO2(98.6) 58 mmHg (60-100); SAMPLE BLOOD; SAO2 95.9 % (95.0-100.0)
[2017-03-08 14:44] LABS: MODALITY BI PAP
[2017-03-08 14:47] LABS: PCO2(98.6) 124 mmHg (35-45)
[2017-03-08] MEDS ORDERED: TYLENOL PO PRN (15:20)
[2017-03-08] MEDS ORDERED: ZOFRAN IV PRN (15:20)
[2017-03-08] MEDS ORDERED: NS 1,000 ML IV SCH (15:20)
[2017-03-08] MEDS ORDERED: SALINE LOCK IV FLUID XX ONE (15:20)
[2017-03-08] MEDS ORDERED: VITAMIN D PO SCH (15:30)
[2017-03-08] MEDS: DUONEB (A & A) INH SCH ×3 (15:57→22:56)
[2017-03-08] MEDS: ROCEPHIN 1 GM/NS 1 GM/50 ML IVPB IV SCH (16:16)
[2017-03-08] MEDS: SOLU-MEDROL IV SCH ×2 (16:16→21:04)
--- NOTE | 2017-03-08 17:00 | HISTORY AND PHYSICAL ---
PRIMARY CARE PROVIDER: Barry Arias MD CHIEF COMPLAINT: Altered mental status. HISTORY OF PRESENT ILLNESS: Ms. Mónica Sosa is a 51-year-old female with a history of morbid obesity, COPD with 3 L nasal cannula at home, obstructive sleep apnea but does not wear her CPAP, hypertension, bipolar, chronic hypercapnic respiratory failure and diabetes mellitus type 2. She presents today via EMS. Her most recent history, she was in rehab up until 1 week ago. She moved in with her friend. The friend who is at the bedside states that the patient was and drowsy last night and did not feel good, but no other complaints. The friend states that when she came home after [facility] that she noticed Ms. Mónica Sosa was asleep on the couch. When she awoke this morning, Mónica was unresponsive with garbled speech and she called 911. Upon presentation she was given Romazicon and Narcan as her pupils at that time were pinpoint and she is on methadone at home. ABGs revealed that she had severe hypercarbic, hypoxemic respiratory acidosis and failure, was placed on BiPAP and was a little more responsive. At some point she received Ativan secondary to agitation and is now verbally unresponsive again. We will admit to the ICU, consult Pulmonary for COPD exacerbation and start on antibiotic therapy and steroids. PAST MEDICAL HISTORY: COPD, 3 L nasal cannula at home. Hypertension. Obstructive sleep apnea. But does not wear her CPAP at night. Chronic hypercapnic respiratory failure. Bipolar. Hypothyroidism. Obesity. Diabetes mellitus type 2. Hyperlipidemia. SURGICAL HISTORY: Cholecystectomy and tubal ligation. FAMILY HISTORY: The patient is unable to give this information. SOCIAL HISTORY: Previously lived with her father. Recently out of rehab 1 week ago and is now living with a friend of hers for 1 week since discharge from rehab. Apparently she still smokes a pack of cigarettes per day and no history of alcohol or illicit drug use, but does take methadone at home. ALLERGIES: No known drug allergies. HOME MEDICATIONS: Albuterol nebulizers q.6 hours. Abilify 5 mg p.o. daily. Aspirin 81 mg p.o. daily. Symbicort 1 puff inhaled p.r.n. BuSpar 50 mg p.o. twice daily. Vitamin D2 50,000 units. Fluconazole 100 mg p.o. daily. Folic acid 1 mg p.o. daily. Synthroid 175 mcg p.o. daily. Mobic 15 mg p.o. daily. Metformin 500 mg with supper. Metoprolol 25 mg p.o. daily. Omeprazole 20 mg p.o. daily. Zofran 4 mg p.o. p.r.n. Trileptal 300 mg p.o. twice daily. Pravastatin 40 mg p.o. nightly. Seroquel 400 mg p.o. nightly. Ranexa 1000 mg p.o. twice daily. Daliresp 500 mcg p.o. daily. Zoloft 100 mg p.o. daily. Tramadol 50 mg p.o. 3 times a day. Trazodone 150 mg p.o. nightly. Methadone dose is not recorded. REVIEW OF SYSTEMS: Unable to obtain. PHYSICAL EXAMINATION: VITAL SIGNS: Temperature 97.5 degrees, heart rate 94, respiratory rate 20, blood pressure 124/66, O2 saturation 93-95% on BiPAP. 212 pounds, 5 feet 8 inches tall with a BMI of 32.3. GENERAL: Ms. Mónica Sosa is a 51-year-old female. She is currently verbally unresponsive. HEENT: Atraumatic, normocephalic. Pupils equal, round, reactive to light, but pinpoint. Cannot assess extraocular movements. Mucous membranes are moist. NECK: No JVD or carotid bruits noted. CARDIOVASCULAR: S1, S2. Regular rate and rhythm. No rubs, gallops, murmurs. PULMONARY: Coarse bilaterally. Decreased in the bases. Currently on BiPAP. No accessory muscle use. GI: Round, soft, nontender, nondistended. Positive bowel sounds x4. EXTREMITIES: Trace lower extremity edema. +2 dorsalis and radial pulses. SKIN: Warm, dry, intact. NEUROLOGIC: Verbally unresponsive. Did not follow commands. LABORATORY DATA: White blood cells 11,000, hemoglobin 13, hematocrit 41, platelet count 351,000. ABGs 7.2, pCO2 is 124, PO2 58, bicarb 36. Base excess positive 15. Saturation 84%. Carboxyhemoglobin 11.5, lactate 0.3, this is on BiPAP 40%. 5 and 18. Sodium 135, potassium 4.5, BUN 4, creatinine 0.4, glucose 124, bilirubin 0.17, AST 16, ALT 16. Albumin 4.1, test negative. Urine drug screen positive for methadone, less than 3 on salicylates, less than 1.2 on acetaminophen. Alcohol level 0. IMAGING: Chest x-ray negative for any acute findings. Head CT, no visible acute intracranial abnormality. EKG, rate 109, QTc is 465. Sinus tachycardia. ASSESSMENT AND PLAN: 1. Chronic obstructive pulmonary disease exacerbation. We will continue with BiPAP, consult Pulmonary, start on albuterol, Atrovent, budesonide, acetylcysteine nebulizers, IV steroids and antibiotic coverage. 2. Metabolic encephalopathy. We will transfer to the intensive care unit for close observation. 3. Acute on chronic hypercarbic hypoxemic respiratory failure. Continue with BiPAP. See #1. 4. Obstructive sleep apnea. Does not wear CPAP at home. 5. Hypertension. Hold p.o. medications for now. 6. Bipolar. Once alert, we will be able to continue home medications. 7. Hypothyroidism, continue Synthroid. 8. Diabetes mellitus type 2. Pattern blood glucoses and sliding scale insulin. 9. Hyperlipidemia. Holding home medications. 10. Deep venous thrombosis prophylaxis. Lovenox 30 q.24 hours. Dictated by TUSHAR Fisher for Drew Cox MD cc: TUSHAR Fisher MD Hiteshri S. Bhavsar, MD
[2017-03-08] MEDS: HUMULIN R SUBQ SCH ×2 (17:09→21:05)
[2017-03-08 17:56] LABS: URINE CULTURE NEEDED? NO; URINE MICRO REVIEW NEEDED? NO; URINE SOURCE CATH
[2017-03-08 18:15] LABS: BILIRUBIN URINE NEGATIVE (NEGATIVE); BLOOD URINE LARGE (NEGATIVE); COLOR YELLOW; GLUCOSE URINE NEGATIVE (NEGATIVE); LEUKOCYTES URINE NEGATIVE (NEGATIVE); NITRITE URINE NEGATIVE (NEGATIVE); PROTEIN URINE TRACE mg/dL (NEGATIVE); TURBIDITY URINE CLEAR (CLEAR); UROBILINOGEN URINE NORMAL (NORMAL)
[2017-03-08 18:17] LABS: UR EPITHELIAL CELLS <10 /HPF (<10); URINE BACTERIA NEGATIVE /HPF; URINE RBC TNTC /HPF (<10); URINE WBC <10 /HPF (<10)
[2017-03-08] MEDS: MUCOMYST 20% INH SCH (19:04)
[2017-03-08] MEDS: PULMICORT INH SCH (19:05)
[2017-03-08] MEDS: BUSPAR PO SCH ×2 (21:04→22:31)
[2017-03-08] MEDS: PRAVACHOL PO SCH ×2 (21:05→22:33)
[2017-03-08] MEDS ORDERED: STERILE WATER INJ. INJ ONE (21:47)
[2017-03-08] MEDS ORDERED: GEODON IM ONE (21:47)
[2017-03-09] MEDS ORDERED: ATIVAN IV ONE (03:23)
[2017-03-09] MEDS: DUONEB (A & A) INH SCH ×6 (03:42→22:41)
[2017-03-09] MEDS: SOLU-MEDROL IV SCH ×4 (04:00→22:08)
[2017-03-09 04:57] LABS: ALLEN TEST YES; BE 19.6 mmoll (-3.0-3.0); BLOOD TYPE ARTERIAL; DRAW SITE R RADIAL; METHB 1.3 % (0.0-1.5); O2(CT) 16.2 mL/dL (15.0-23.0); PO2(98.6) 61 mmHg (60-100); SAMPLE BLOOD; SAO2 96.3 % (95.0-100.0); THB 12.4 g/dL (11.5-17.4); pH(98.6) 7.45 (7.35-7.45)
[2017-03-09 04:59] LABS: MODALITY BI PAP; PCO2(98.6) 68 mmHg (35-45)
[2017-03-09] MEDS ORDERED: ATIVAN IM ONE (05:00)
[2017-03-09 05:49] LABS: MANUAL DIFF NEEDED? NO
[2017-03-09 06:04] LABS: HEMATOCRIT 36.3 % (37.0-47.0); HEMOGLOBIN 11.3 g/dL (12.0-16.0); IMM GRAN# 0.02 X1000 (0.0-0.04); IMM GRAN% 0.3 % (0.0-0.5); LYMPH# 0.66 X1000 (1.2-3.4); LYMPH% 10.6 % (20.5-51.1); MCH 30.8 PG (27-31); MCHC 31.1 g/dL (33-37); MCV 98.9 FL (81-99); MONO# 0.28 X1000 (0.11-0.59); MONO% 4.5 % (1.7-9.3); MPV 9.8 FL (7.4-10.4); NEUT% 84.6 % (42.2-75.2); PLT 290 X1000 (130-400); RBC 3.67 XMIL (4.2-5.4)
[2017-03-09 06:34] LABS: AGAP 9; ALBUMIN 3.8 g/dL (3.5-5.0); ALKALINE PHOSPHATASE 83 U/L (32-104); BUN 9 mg/dL (8-22); CALCIUM 9.5 mg/dL (8.8-10.2); CHLORIDE 90 mmol/L (98-107); COSMO 278; GOT 18 U/L (10-30); GPT 18 U/L (10-36); POTASSIUM 4.3 mmol/L (3.5-5.1); SODIUM 139 mmol/L (136-145); TCO2 40 mmol/L (25-35); TOTAL BILIRUBIN 0.22 mg/dL (0.20-1.00); TOTAL PROTEIN 6.6 g/dL (6.3-8.3)
[2017-03-09] MEDS: MUCOMYST 20% INH SCH ×2 (07:23→19:15)
[2017-03-09] MEDS: PULMICORT INH SCH ×2 (07:23→19:15)
[2017-03-09] MEDS ORDERED: LOVENOX SUBQ SCH ×2 (08:00→14:13)
[2017-03-09] MEDS: HUMULIN R SUBQ SCH ×4 (08:12→23:41)
[2017-03-09] MEDS: PROTONIX PO SCH (08:26)
[2017-03-09] MEDS: ASPIRIN EC PO SCH (08:27)
[2017-03-09] MEDS: TOPROL XL PO SCH (08:27)
[2017-03-09] MEDS: FOLIC ACID PO SCH (08:27)
[2017-03-09] MEDS: BUSPAR PO SCH ×2 (08:27→20:04)
[2017-03-09] MEDS: RANEXA PO SCH ×2 (08:28→20:04)
[2017-03-09] MEDS: SYNTHROID PO SCH (08:28)
[2017-03-09] MEDS: ZOLOFT PO SCH (08:28)
[2017-03-09] MEDS: ABILIFY PO SCH (08:28)
--- NOTE | 2017-03-09 08:38 | CONSULTATION ---
DATE OF CONSULTATION: 03/09/2017 REFERRING PHYSICIAN: Dr. Ndiaye. CHIEF COMPLAINT: Altered mental status. HISTORY OF PRESENT ILLNESS: This is a 51-year-old female with past medical history of hypertension, ROMMEL, hypothyroidism, obesity, diabetes, hyperlipidemia and COPD that presented to the hospital with altered mental status. She was admitted to the ICU for evaluation of her respiratory failure and COPD exacerbation. She was placed on BiPAP and has not been agitated overnight. REVIEW OF SYSTEMS: Unable to obtain. PAST MEDICAL HISTORY: As mentioned in HPI, otherwise noncontributory. PAST SURGICAL HISTORY: Cholecystectomy and tubal ligation. FAMILY HISTORY: Unknown. ALLERGIES: No known drug allergies. SOCIAL HISTORY: The patient is a current smoker. No documented history of alcohol or illicit drug use. Lives with a friend. ACTIVE MEDICATIONS: 1. Tylenol. 2. Mucomyst. 3. DuoNeb. 4. Abilify. 5. Aspirin. 6. Pulmicort. 7. BuSpar. 8. Rocephin. 9. Lovenox. 10. Vitamin D. 11. Folic acid. 12. Humulin R. 13. Synthroid. 14. Solu-Medrol. 15. Toprol. 16. Zofran. 17. Trileptal. 18. Protonix. 19. Pravachol. 20. Ranexa. 21. Zoloft. PHYSICAL EXAMINATION: Vital Signs: Blood pressure 129/95, heart rate 88, respiratory rate 24, temperature 97.6, oxygen saturation 97%. General: Lying in bed, agitated overnight, BiPAP in place, no acute distress noted. HEENT: Normocephalic and atraumatic. PERRL. Cardiovascular: S1, S2 present. Chest: Reduced entry with decreased breath sounds bilaterally. Abdomen: Bowel sounds present. Extremities: +1 pedal edema. Skin: Warm, dry and intact. LABS AND INVESTIGATIONS: WBC 6.22, RBC is 3.67, hemoglobin 11.3, hematocrit 36.3, platelet count 290. Sodium 139, potassium 4.3, chloride 90, CO2 40, anion gap 9. BUN 9, creatinine 0.5, glucose 125. Blood gas reveals a pH 7.45, pCO2 of 68, PO2 of 61, HC03 of 20.1. Base excess of 13.6. Saturated oxygen 96. ASSESSMENT AND PLAN: This is a 51-year-old female with past medical history mentioned in the history of present illness, who was admitted to the intensive care unit for evaluation of her acute on chronic hypercarbic respiratory failure secondary to chronic obstructive pulmonary disease exacerbation. Will continue BiPAP and inhaled bronchodilators. Intravenous antibiotics, steroids, deep vein thrombosis and gastrointestinal prophylaxis. Further recommendations pending diagnostic studies. Thank you for the courtesy of this consult. Dictated by TUSHAR Deshpande for Sofia Bentley MD cc: TUSHAR Deshpande MD
[2017-03-09] MEDS ORDERED: PRILOSEC PO SCH (09:00)
[2017-03-09] MEDS ORDERED: VITAMIN D PO SCH (09:00)
[2017-03-09] MEDS ORDERED: ATIVAN IV PRN (11:51)
[2017-03-09] MEDS ORDERED: HALDOL ONE (12:32)
[2017-03-09] MEDS: HALDOL IV PRN ×2 (12:37→19:00)
[2017-03-09] MEDS ORDERED: APRESOLINE IV PRN (14:12)
--- NOTE | 2017-03-09 14:44 | PROGRESS NOTE ---
DATE: 03/09/2017 SUBJECTIVE: This patient is agitated at the moment of my evaluation. I have ordered Ativan 2 mg p.r.n. for agitation. Her friend, that is the person who lives with her, is at the bedside. Apparently, she found this patient with altered mental status and decreased oxygen saturation. OBJECTIVE: Vital Signs: Temperature 98.5 degrees, pulse 102, respiratory rate 28, blood pressure 170/89. O2 saturation 94% on BiPAP, 40% FiO2. HEENT: Head normocephalic. No trauma. PERRLA. Neck: Supple. No JVD. No masses. Central trachea. Chest: Coarse breath sounds bilaterally with scattered expiratory wheezing. A prolonged expiatory phase. Decreased breath sounds at the bases. Currently on BiPAP. Abdomen: Soft, nontender, nondistended. No hepatosplenomegaly. Extremities: Trace lower extremity edema. No clubbing. No cyanosis. Neurological Examination: The patient is agitated. She is not following commands. She is not answering my questions. LABORATORY: WBC 6.2, hemoglobin 11.3, hematocrit 36.3, platelets 290,000. Sodium 139, potassium 4.3, chloride 90, bicarbonate 40. BUN 9, creatinine 0.5. Glucose 125. Calcium 9.5. ASSESSMENT AND PLAN: 1. Acute on chronic hypercapnic respiratory failure. At this moment we will continue with the BiPAP machine. Pulmonary department is following this patient. Continue with respiratory treatment, steroids, and oxygen. 2. Chronic obstructive pulmonary disease exacerbation. As above. 3. Metabolic encephalopathy. I will continue treating this patient in the ICU. I have ordered Ativan p.r.n. for agitation. 4. Obstructive sleep apnea. Apparently this patient is not using a CPAP machine at home. 5. Hypertension. She is on metoprolol succinate 25 mg p.o. daily and I will put this patient on p.r.n. medication for high blood pressure. 6. History of bipolar disorder. I will continue with her home medications. 7. Hypothyroidism. Continue with Synthroid. 8. Type 2 diabetes. We will continue with the pattern blood sugar and sliding scale insulin. 9. Hyperlipidemia. Aware. 10. Deep vein thrombosis prophylaxis. Continue with Lovenox. CRITICAL CARE TIME: Was 35 minutes. cc: Drew Cox MD
[2017-03-09] MEDS: TRILEPTAL PO SCH ×2 (15:16→20:04)
[2017-03-09] MEDS ORDERED: GEODON IM ONE (15:21)
[2017-03-09] MEDS ORDERED: STERILE WATER INJ. INJ ONE (15:21)
[2017-03-09] MEDS ORDERED: GEODON ONE (15:24)
[2017-03-09] MEDS: ROCEPHIN 1 GM/NS 1 GM/50 ML IVPB IV SCH (15:27)
[2017-03-09] MEDS: PRAVACHOL PO SCH (20:04)
[2017-03-09] MEDS ORDERED: SEROQUEL PO SCH (21:00)
[2017-03-10] MEDS: SOLU-MEDROL IV SCH ×2 (02:49→08:57)
[2017-03-10] MEDS: DUONEB (A & A) INH SCH ×3 (03:01→11:23)
[2017-03-10 04:31] LABS: ALLEN TEST YES; BE 15.4 mmoll (-3.0-3.0); BLOOD TYPE ARTERIAL; DRAW SITE R RADIAL; METHB 1.1 % (0.0-1.5); O2(CT) 21.9 mL/dL (15.0-23.0); PO2(98.6) 66 mmHg (60-100); SAMPLE BLOOD; THB 16.8 g/dL (11.5-17.4); pH(98.6) 7.51 (7.35-7.45)
[2017-03-10 04:32] LABS: MODALITY BI PAP; PCO2(98.6) 52 mmHg (35-45)
[2017-03-10 05:30] LABS: EOS# 0.01 X1000 (0.0-0.7); EOS% 0.2 % (0.0-10.0); HEMATOCRIT 37.9 % (37.0-47.0); HEMOGLOBIN 12.6 g/dL (12.0-16.0); LYMPH# 0.73 X1000 (1.2-3.4); MANUAL DIFF NEEDED? YES; MCH 30.6 PG (27-31); MCHC 33.2 g/dL (33-37); MONO# 0.34 X1000 (0.11-0.59); MONO% 6.5 % (1.7-9.3); MPV 10.6 FL (7.4-10.4); NEUT% 79.3 % (42.2-75.2); PLT 282 X1000 (130-400); RBC 4.12 XMIL (4.2-5.4)
[2017-03-10] MEDS: HUMULIN R SUBQ SCH ×2 (06:13→12:01)
[2017-03-10] MEDS: PROTONIX PO SCH (06:16)
[2017-03-10] MEDS: SYNTHROID PO SCH (06:16)
[2017-03-10 06:41] LABS: AGAP 12; BUN 15 mg/dL (8-22); CALCIUM 9.4 mg/dL (8.8-10.2); CHLORIDE 85 mmol/L (98-107); COSMO 267; POTASSIUM 3.7 mmol/L (3.5-5.1); SODIUM 132 mmol/L (136-145); TCO2 35 mmol/L (25-35)
[2017-03-10] MEDS: PULMICORT INH SCH (07:18)
[2017-03-10] MEDS: MUCOMYST 20% INH SCH (07:18)
[2017-03-10 07:30] LABS: BANDS 2 % (0-1); LYMPHS 18 % (21-51); MONO 6 % (1-9)
[2017-03-10] MEDS: ZOLOFT PO SCH (08:57)
[2017-03-10] MEDS: TOPROL XL PO SCH (08:58)
[2017-03-10] MEDS: RANEXA PO SCH (08:58)
[2017-03-10] MEDS: BUSPAR PO SCH (08:58)
[2017-03-10] MEDS: TRILEPTAL PO SCH (08:58)
[2017-03-10] MEDS: ASPIRIN EC PO SCH (08:59)
[2017-03-10] MEDS: ABILIFY PO SCH (08:59)
[2017-03-10] MEDS: FOLIC ACID PO SCH (09:06)
--- NOTE | 2017-03-10 09:48 | PROGRESS NOTE ---
DATE: 03/10/2017 SUBJECTIVE: This patient looks better today. She is completely alert and oriented x3. She is still complaining about generalized pain, mostly at the level of her back. She has been asking for medication. She is on a nasal cannula at this moment and the oxygen saturation looks fine. We are going to avoid narcotics on this patient. OBJECTIVE: Vital Signs: Temperature 98.6 degrees, pulse 84, respiratory rate 18, blood pressure 143/86, oxygen saturation 92 on nasal cannula. HEENT: Head normocephalic. No trauma. PERRLA. Neck: Supple. No JVD. No masses. Central trachea. Chest: Coarse breath sounds bilaterally. No wheezing. Prolonged expiatory phase. Decreased breath sounds at the bases. Currently on nasal cannula. Abdomen: Soft. Mild tenderness to palpation at the level of the epigastric area. Nontender and nondistended. Extremities: Trace lower extremity edema. No clubbing. No cyanosis. Neurological Examination: The patient is alert and oriented x3. She moves all 4 extremities. Laboratory: WBC 5.2, hemoglobin 12.6, hematocrit 37.9, platelets 282,000. Sodium 132, potassium 3.7, chloride 85, bicarbonate 35, BUN 15, creatinine 0.5, glucose 127, calcium 9.4. ASSESSMENT AND PLAN: 1. Acute on chronic hypercapnic respiratory failure. This is getting better. She is on a nasal cannula today and the oxygen saturation has been stable. We will continue with the same management, respiratory treatments, steroids, and oxygen. 2. Chronic obstructive pulmonary disease exacerbation. As above. 3. Metabolic encephalopathy. This is much better. The patient today is alert and oriented x3. 4. Obstructive sleep apnea. Apparently, this patient is not using a CPAP machine at home. 5. Hypertension, stable. Continue with the same management. 6. History of bipolar disorder. Continue with home medications. 7. Hypothyroidism. Continue with Synthroid. 8. Type 2 diabetes. Continue with pattern of blood sugar and sliding scale insulin. 9. Hyperlipidemia, aware. 10. Deep vein thrombosis prophylaxis with Lovenox. CRITICAL CARE TIME: 35 minutes. cc: Drew Cox MD
[2017-03-10 12:01] VITALS: BP 144/81
[2017-03-10] MEDS ORDERED: MEDROL DOSEPAK PO SCH (14:30)
[2017-03-10] MEDS ORDERED: MEDROL PO SCH (17:00)
--- NOTE | 2017-03-10 18:00 | DISCHARGE SUMMARY ---
ADMISSION DATE: 03/08/2017 DISCHARGE DATE: 03/10/2017 DISCHARGE DIAGNOSES: 1. Acute on chronic hypercapnic respiratory failure. 2. Chronic obstructive pulmonary disease exacerbation. 3. Metabolic encephalopathy/resolved. 4. Obstructive sleep apnea. 5. Hypertension. 6. Bipolar disorder. 7. Hypothyroidism. 8. Type 2 diabetes. 9. Hyperlipidemia. HOSPITAL COURSE: A 51-year-old female with a past medical history of obesity and COPD on 3 L of nasal cannula at home. Obstructive sleep apnea, hypertension, bipolar disorder, chronic hypercapnic respiratory failure, and type 2 diabetes. She presented via EMS and was admitted on 03/08/2017 secondary to respiratory failure and altered mental status. The history was provided by her friend who lives with her. She states that the night before admission she did not feel good. She was a little bit drowsy but not other complaints. She noticed that she was sleeping on the couch and when she tried to wake her up the following morning the patient was unresponsive and she called 911. ABGs in the emergency department revealed that she had severe ice hypercapnic hypoxemic respiratory acidosis having respiratory failure. She was placed on BiPAP and she was transferred to the ICU. She was placed on steroids, breathing treatment, pulmonary toilet and BiPAP machine. The following day she was doing much better. She was evaluated by the Pulmonary Department also. Today, she says the patient was doing much better. She was not complaining of respiratory failure or respiratory distress. The oxygen saturation was fine with nasal cannula. We decided to discharge this patient with an active follow up by her primary care doctor and data migration consultant. DISCHARGE EXAMINATION: Vital signs: Temperature 96.8 degrees, pulse 95, respiratory rate 20, blood pressure 144/81, and oxygen saturation 96 on 4 L of nasal cannula. HEENT : Head normocephalic. No trauma. PERRLA. Neck: Supple. No JVD. No masses. Central trachea. Chest: Clear to auscultation. Prolonged expiatory phase. No wheezing. No rales. Abdomen: Soft, nontender, nondistended. No hepatosplenomegaly. Extremities: No edema. No clubbing. No cyanosis. Neurological: The patient is alert and oriented x3. No focal neurological deficits. LABORATORY: WBC 5.2, hemoglobin 12.6, hematocrit 37.9, platelets 282,000. Sodium 132, potassium 3.7, chloride 85, bicarbonate 35, BUN 15, creatinine 0.5, glucose 127 and calcium 9.4. FOLLOW UP: Followup by her primary care physician in 1 week and follow up by her data migration consultant. DISCHARGE MEDICATIONS: 1. Sertraline 100 mg p.o. every morning. 2. Metformin; 500 mcg p.o. daily. 3. Ranexa 1000 mg p.o. b.i.d. 4. Seroquel 400 mg p.o. at bedtime. 5. Pravastatin 40 mg p.o. at bedtime. 6. Trileptal 300 mg p.o. b.i.d. 7. Zofran 4 mg p.o. p.r.n. nausea and vomiting. 8. Omeprazole 20 mg p.o. daily. 9. Metoprolol succinate 25 mg p.o. b.i.d. 10. Metformin 500 mg p.o. with supper. 11. Levothyroxine 175 mcg p.o. daily. 12. Folic Acid 1 mg p.o. daily. 13. Vitamin B12 5000 units p.o. as directed. 14. Buspirone 50 mg p.o. b.i.d. 15. Symbicort 1 puff inhaler daily p.r.n. 16. Aspirin 81 mg p.o. daily. 17. Aripripazole5 mg p.o. every morning. 18. Albuterol 2.5 mg inhaler q.6 hours and p.r.n. 19. Medrol Dosepak as directed. TIME SPENT: Time discharging this patient is 35 minutes. cc: Drew Cox MD MTDD
== END 2017-03-10 15:16 | disposition home or self-care (01) ==
LOC: SUPCPDRO → ED 10:25 → ICU 14:16
PROVIDERS: ATTEND Internal Medicine

== ENCOUNTER 2017-03-27 15:12 | Inpatient (IN) ==
[2017-03-27] MEDS ORDERED: DUONEB (A & A) INH ONE (15:28)
[2017-03-27 15:41] LABS: MANUAL DIFF NEEDED? NO
[2017-03-27 15:43] LABS: BASO% 0.1 % (0.0-0.8); EOS# 0.03 X1000 (0.0-0.7); EOS% 0.4 % (0.0-10.0); HEMATOCRIT 33.8 % (37.0-47.0); IMM GRAN# 0.01 X1000 (0.0-0.04); IMM GRAN% 0.1 % (0.0-0.5); LYMPH# 0.97 X1000 (1.2-3.4); LYMPH% 12.3 % (20.5-51.1); MCH 30.1 PG (27-31); MCHC 29.6 g/dL (33-37); MCV 101.8 FL (81-99); MONO# 0.82 X1000 (0.11-0.59); MONO% 10.4 % (1.7-9.3); MPV 9.2 FL (7.4-10.4); NEUT% 76.7 % (42.2-75.2); PLT 261 X1000 (130-400); RBC 3.32 XMIL (4.2-5.4)
[2017-03-27] MEDS ORDERED: ATIVAN IM ONE (15:58)
[2017-03-27 16:04] LABS: AGAP 4; ALBUMIN 3.7 g/dL (3.5-5.0); ALKALINE PHOSPHATASE 80 U/L (32-104); BUN 4 mg/dL (8-22); CHLORIDE 90 mmol/L (98-107); COSMO 270; GOT 14 U/L (10-30); GPT 12 U/L (10-36); POTASSIUM 4.1 mmol/L (3.5-5.1); SODIUM 137 mmol/L (136-145); TCO2 43 mmol/L (25-35); TOTAL PROTEIN 6.2 g/dL (6.3-8.3)
[2017-03-27 16:07] LABS: BE 22.7 mmoll (-3.0-3.0); BLOOD TYPE ARTERIAL; DRAW SITE L RADIAL; METHB 0.3 % (0.0-1.5); PO2(98.6) 66 mmHg (60-100); SAMPLE BLOOD; SAO2 96.5 % (95.0-100.0); THB 10.2 g/dL (11.5-17.4); pH(98.6) 7.37 (7.35-7.45)
--- NOTE | 2017-03-27 16:07 | PROVIDER DOCUMENTATION ---
HPI-Respiratory General - General Chief Complaint: Shortness of Breath Stated Complaint: copd Time Seen by Provider: 03/27/17 15:59 Source: patient, family Allergies/Adverse Reactions: Patient Allergies Allergy/AdvReac Type Severity Reaction Status Date / Time No Known Allergies Allergy Verified 03/27/17 15:19 Home Medications: Home Medication List Medication Instructions Recorded Confirmed Last Taken Type Budesonide/Formoterol Fumarate 1 puff INH DAILY PRN 02/23/14 03/08/17 10/14/16 History [Symbicort 160-4.5 Mcg Inhaler] Buspirone [Buspar] 15 mg PO BID 02/23/14 03/08/17 10/21/16 09:00 History 15mg Ranolazine [Ranexa] 1,000 mg PO BID 04/17/15 03/08/17 10/21/16 09:00 History 1000mg Albuterol [Albuterol Neb] 2.5 mg INH RTQ6H 10/21/16 03/08/17 10/14/16 History Oxcarbazepine [Trileptal] 300 mg PO BID 30 Days 10/29/16 03/08/17 Unknown Rx Quetiapine [Seroquel] 400 mg PO QHS 30 Days 10/29/16 03/08/17 Unknown Rx Sertraline [Zoloft] 100 mg PO QAM 30 Days 10/29/16 03/08/17 Unknown Rx Aripiprazole [Abilify] 5 mg PO QAM 11/07/16 03/08/17 Unknown History Aspirin [Aspir-Low] 81 mg PO DAILY 11/07/16 03/08/17 Unknown History Folic Acid 1 mg PO DAILY 11/07/16 03/08/17 Unknown History Levothyroxine Sodium 175 mcg PO DAILY@0700 11/07/16 03/08/17 Unknown History Metformin HCl [Metformin HCl ER] 500 mg PO WSUPPER 11/07/16 03/08/17 Unknown History Metoprolol Succinate 25 mg PO DAILY 11/07/16 03/08/17 Unknown History Omeprazole 20 mg PO DAILY 11/07/16 03/08/17 Unknown History Pravastatin Sodium 40 mg PO QHS 11/07/16 03/08/17 Unknown History Albuterol 2.5MG/Ipratrop 0.5MG 3 ml INH RTQ4H neb 01/17/17 03/08/17 Unknown Rx [Duoneb (A & A)] Ergocalciferol (Vitamin D2) 50,000 unit PO DIRECTED 03/08/17 03/08/17 Unknown History [Vitamin D2] Fluconazole 100 mg PO DAILY 03/08/17 03/08/17 Unknown History Ondansetron HCl [Zofran] 4 mg PO PRN PRN 03/08/17 03/08/17 Unknown History Roflumilast [Daliresp] 500 mcg PO DAILY 03/08/17 03/08/17 Unknown History Methylprednisolone [Medrol Dosepak] 4 mg PO DIRECTED #1 package 03/10/17 Unknown Rx - History of Present Illness-Resp Nature of Presenting Problem: 51 yof hx of COPD c/o confusion, anxiety, and SOB. Quality of Pain: reports: none Severity in ED: reports: moderate Onset/Duration: reports: 2 days ago Timing: reports: still present, getting worse Cough Quality/Degree: reports: moderate Episode Frequency: frequent episodes Current Respiratory Medication Therapy: Initiated see nurses note Similar Symptoms Previously?: No Recently seen or treated by another doctor?: No Review of Systems - Adult - REVIEW OF SYSTEMS - ADULT Constitutional: reports: see HPI Eyes: reports: no symptoms reported Ears, Nose, Mouth & Throat: reports: no symptoms reported Cardiovascular: reports: no symptoms reported Respiratory: reports: see HPI, cough, shortness of breath Gastrointestinal: reports: no symptoms reported Genitourinary: reports: no symptoms reported Musculoskeletal: reports: no symptoms reported Integumentary: reports: no symptoms reported Neurological: reports: no symptoms reported Psychiatric: reports: no symptoms reported Endocrine: reports: no symptoms reported Hematologic/Lymphatic: reports: no symptoms reported Allergic/Immunologic: reports: no symptoms reported All Other Systems: Reviewed and Negative Past History - Adult - PAST MEDICAL HISTORY-ADULT Review of Records: reports: Old Records Reviewed, Nursing Assessment Review, Medications Reviewed, Social history reviewed & non-contributory. Major Childhood Illnesses: reports: denies history Cardiovascular: reports: HTN Respiratory: reports: asthma, COPD, sleep apnea (bi pap) Gastrointestinal: reports: denies history Obstetrical/Gynecological: reports: denies history Genitourinary: reports: denies history Musculoskeletal: reports: denies history Neurological: reports: denies history Psychiatric: reports: bipolar Endocrine/Immune: reports: thyroid disorder Other Conditions: reports: denies history - PRIOR SURGERIES/PROCEDURES Surgical/Procedure History: reports: cholecystectomy, BTL, orthopedic (extremity ) - IMMUNIZATION STATUS Childhood Immunizations: See Nurse Assessment Flu Vaccine: See Nurse Assessment - FAMILY HISTORY Family History: reviewed, not pertinent Physical Exam-General - PHYSICAL EXAM-ADULT Initial Vital Signs Reviewed: Yes - CONSTITUTIONAL General Appearance: no apparent distress - EYES Eyes: PERRL/EOMI, pink conjunctivae - HEAD, EARS, NOSE, MOUTH & THROAT HENMT: normocephalic/atraumatic, moist mucous membranes, normal ENT inspection, TMs normal, pharynx normal - NECK Neck: non-tender, full range of motion, supple, normal inspection - RESPIRATORY Respiratory: chest non-tender, no pleuratic chest pain, no respiratory distress , no accessory muscle use - CARDIOVASCULAR Cardiovascular: normal peripheral pulses, regular rate, rhythm, no edema - GASTROINTESTINAL (ABDOMEN) Abdominal Exam: normal bowel sounds, non tender, soft - LYMPHATIC Lymphatic: no adenopathy - MUSCULOSKELETAL Back Exam: normal inspection, no CVA tenderness, no vertebral tenderness Extremity: normal range of motion, non-tender, normal gait Peripheral Pulses: radial (R): 2+, radial (L): 2+, dorsalis-pedis (R): 2+, dorsalis-pedis (L): 2+ - SKIN Integumentary: normal color, normal turgor, warm/dry - NEUROLOGIC Neurologic: grossly normal, no motor/sensory deficits - PSYCHIATRIC Psych/Mental Status: normal mood/affect, normal thought content, normal thought process, oriented x 3 Progress - PLAN OF CARE/RESULTS Progress/Plan/Lab Results: Vital Signs - 8 hr 03/27/17 15:16 03/27/17 16:06 Temperature 97.4 F L Pulse Rate 99 H 96 H Respiratory Rate 21 20 Blood Pressure 131/079 O2 Sat by Pulse Oximetry 94 L 95 Laboratory Results - last 24 hr 03/27/17 03/27/17 03/27/17 15:37 15:37 15:37 WBC 7.90 RBC 3.32 L Hgb 10.0 L Hct 33.8 L MCV 101.8 H MCH 30.1 MCHC 29.6 L RDW Std Deviation 16.2 H Plt Count 261 MPV 9.2 Immature Gran % (Auto) 0.1 Neut % (Auto) 76.7 H Lymph % (Auto) 12.3 L [place] % (Auto) 10.4 H Eos % (Auto) 0.4 Baso % (Auto) 0.1 Immature Gran # (Auto) 0.01 Neut # (Auto) 6.06 Lymph # (Auto) 0.97 L [place] # (Auto) 0.82 H Eos # (Auto) 0.03 Baso # (Auto) 0.01 Specimen Type Sample Site pH pCO2 pO2 HCO3 Base Excess Oxyhemoglobin ABG O2 Sat (Calculated) ABG O2 Saturation ABG Carboxyhemoglobin ABG Methemoglobin Abhinav Test A-a O2 Difference Total Hemoglobin Lactate Liter Flow Blood Gas Modality FiO2 % Sodium 137 Potassium 4.1 Chloride 90 L Carbon Dioxide 43 H Anion Gap 4 BUN 4 L Creatinine 0.3 L Estimated GFR/1.73 m2 > 60 BUN/Creatinine Ratio 13 Glucose 80 Calculated Osmolality 270 Calcium 9.0 Total Bilirubin 0.30 AST 14 ALT 12 Alkaline Phosphatase 80 Creatine Kinase 128 Troponin T Total Protein 6.2 L Albumin 3.7 Globulin 3.0 Albumin/Globulin Ratio 1.0 03/27/17 03/27/17 15:37 15:43 WBC RBC Hgb Hct MCV MCH MCHC RDW Std Deviation Plt Count MPV Immature Gran % (Auto) Neut % (Auto) Lymph % (Auto) [place] % (Auto) Eos % (Auto) Baso % (Auto) Immature Gran # (Auto) Neut # (Auto) Lymph # (Auto) [place] # (Auto) Eos # (Auto) Baso # (Auto) Specimen Type ARTERIAL Sample Site L RADIAL pH 7.37 pCO2 90 H* pO2 66 HCO3 42.5 H Base Excess 22.7 H Oxyhemoglobin 89.9 L* ABG O2 Sat (Calculated) 13.0 L ABG O2 Saturation 96.5 ABG Carboxyhemoglobin 6.50 H* ABG Methemoglobin 0.3 Abhinav Test YES A-a O2 Difference 21.0 Total Hemoglobin 10.2 L Lactate 0.40 L Liter Flow 3.0 Blood Gas Modality CANNULA FiO2 % 32.0 Sodium Potassium Chloride Carbon Dioxide Anion Gap BUN Creatinine Estimated GFR/1.73 m2 BUN/Creatinine Ratio Glucose Calculated Osmolality Calcium Total Bilirubin AST ALT Alkaline Phosphatase Creatine Kinase Troponin T < 0.010 Total Protein Albumin Globulin Albumin/Globulin Ratio Orders Category Date Time Status Saline Loc NOW Care 03/27/17 16:20 Active CHEST-1 VIEW [RAD] Stat Exams 03/27/17 15:33 Completed ABG [RESP] Routine Lab 03/27/17 15:43 Completed CBC WITH ELECTRONIC DIFF [HEME] Stat Lab 03/27/17 15:37 Completed CK PROFILE [SP CHEM] Stat Lab 03/27/17 15:37 Completed CMP [COMPREHENSIVE METABOLIC PANEL] [CHEM] Stat Lab 03/27/17 15:37 Completed TROPONIN T Stat Lab 03/27/17 15:37 Completed Albuterol 2.5MG/Ipratrop 0.5MG [Duoneb (A & A)] Med 03/27/17 15:28 Discontinued 3 ml INH NOW ONE Lorazepam [Ativan] Med 03/27/17 15:58 Discontinued 1 mg IM NOW ONE Methylprednisolone Sod Succ [Solu-Medrol] Med 03/27/17 16:20 Discontinued 125 mg IV NOW ONE Aerosol Treatments Stat Oth 03/27/17 15:28 Completed BIPAP Stat Oth 03/27/17 16:20 Active EKG [EKG] Stat Ther 03/27/17 15:29 Ordered Result Diagrams: 03/27/17 15:37 03/27/17 15:37 - XRAY 1 XRAY Study: Chest Impression: See EMR Report Departure - Departure Date of Disposition Decision: 03/27/17 Time of Disposition Decision: 17:15 DIAGNOSIS: COPD (chronic obstructive pulmonary disease) Qualifiers: COPD type: COPD with acute exacerbation Qualified Code(s): J44.1 - Chronic obstructive pulmonary disease with (acute) exacerbation Disposition: ADMITTED INPATIENT 09 Certified Medical Emergency: Emergent Condition: Stable - Critical Care Note This patient required my direct & personal management of CC.: No Attestation - Physician/ NHUNG Attestation Patient care was provided by Advanced Practice Provider:: Yes Advanced Practice Provider:: James Guo Advanced Practice Provider documentation review:: The Mid-level provider documentation, treatment plan and medical decision making was reviewed by the physician who agrees with all treatment and medical decision making by the MLP.
[2017-03-27 16:17] LABS: PCO2(98.6) 90 mmHg (35-45)
[2017-03-27 16:18] LABS: MODALITY CANNULA
[2017-03-27 16:19] LABS: ALLEN TEST YES
[2017-03-27] MEDS ORDERED: SOLU-MEDROL IV ONE (16:20)
--- NOTE | 2017-03-27 16:47 | Diag Imaging Result Doc PS360 ---
EXAM: CHEST-1 VIEW - 03/27/2017 HISTORY: sob TECHNIQUE: One view chest COMPARISON: 03/08/2017 FINDINGS: Heart size appears upper normal. There is mild prominence of interstitial markings. Also this appears to be chronic, superimposed mild interstitial pneumonitis or mild interstitial edema cannot be excluded. There is no dense consolidation, pleural effusion, or pneumothorax identified. There is a left lower lobe calcified granuloma from old granulomatous disease which is stable. IMPRESSION: Mild interstitial marking prominence, possibly related to mild interstitial pneumonitis or edema. No discrete focal pneumonia. Electronically signed by Milan Jung 03/27/2017 4:45 PM
[2017-03-27] MEDS ORDERED: ROCEPHIN 1 GM/NS 1 GM/50 ML IVPB IV SCH (17:30)
[2017-03-27] MEDS ORDERED: PHENERGAN ONE (17:51)
[2017-03-27] MEDS ORDERED: PHENERGAN IV ONE (17:51)
[2017-03-27] MEDS ORDERED: SODIUM CHLORIDE 0.9% INJ ONE (17:51)
[2017-03-27] MEDS ORDERED: ZITHROMAX 500 MG/NS 500 MG/250 ML IVPB IV SCH (18:00)
[2017-03-27] MEDS ORDERED: DUONEB (A & A) INH PRN (18:13)
[2017-03-27] MEDS ORDERED: SOLU-MEDROL IV SCH (18:13)
[2017-03-27] MEDS: ATIVAN IV PRN (19:23)
[2017-03-27] MEDS: DUONEB (A & A) INH SCH ×2 (19:57→23:08)
--- NOTE | 2017-03-27 19:59 | HISTORY AND PHYSICAL ---
CHIEF COMPLAINT: Shortness of breath. Confusion. Agitation. HISTORY OF PRESENT ILLNESS: A 51-year-old, female with a past medical history of chronic hypercapnic respiratory failure, COPD, obstructive sleep apnea, hypertension, bipolar disorder, hypothyroidism, type 2 diabetes, hyperlipidemia. Came into the emergency department with a chief complaint of shortness of breath, family members at the bedside and most of the story was taken from her family member. Apparently, she has been complaining of shortness of breath and anxiety for the past 3 days. Today, her shortness of breath was more severe and she started having confusion and cough. This is why she decided to bring this patient to the emergency department for evaluation. In the emergency department, she also was found to have an elevated pCO2, low hemoglobin of 10, she was placed on the BiPAP machine and she received 1 dose of Ativan because of agitation. She also received 1 dose of a methylprednisolone and breathing treatment. As per the family member, this patient is still smoking. PAST MEDICAL HISTORY: COPD and she has been on 3 L of nasal cannula at home, hypertension, obstructive sleep apnea, but apparently she is not using the CPAP machine at night, chronic hypercapnic respiratory failure, bipolar disorder, hypothyroidism, obesity, type 2 diabetes and hyperlipidemia. SURGICAL HISTORY: Cholecystectomy and tubal ligation. FAMILY HISTORY: This patient is unable to give me any information. SOCIAL HISTORY: She lives with a friend and she is still smoking at least a pack of cigarettes per day, no drugs, no alcohol, but apparently she also takes methadone at home. ALLERGIES: No known drug allergies. MEDICATIONS: She was recently discharged on 03/10/2017 with the following medications: Sertraline 100 mg p.o. daily, metformin 500 mcg p.o. daily, Ranexa 1000 mg p.o. b.i.d., Seroquel 400 mg p.o. at bedtime, pravastatin 40 mg p.o. at bedtime, Trileptal 300 mg p.o. b.i.d., Zofran 4 mg p.o. p.r.n. nausea and vomiting, omeprazole 20 mg p.o. daily, metoprolol succinate 25 mg p.o. b.i.d., metformin 500 mg p.o. with supper, levothyroxine 175 mcg p.o. daily, folic acid 1 mg p.o. daily, vitamin B12 5000 units p.o. as directed, buspirone 50 mg p.o. b.i.d., Symbicort 1 puff inhaler daily p.r.n., aspirin 81 mg p.o. daily, aripiprazole 5 mg p.o. every morning, albuterol 2.5 mg inhaler q.6 hours p.r.n., Medrol Dosepak as directed. REVIEW OF SYSTEMS: 14 points of review of system were reviewed, all of them negative except as per HPI. PHYSICAL EXAMINATION: VITAL SIGNS: Temperature 97.4 degrees, pulse 96, respiratory rate 20, blood pressure 131/79, oxygen saturation 95% on 3 L of nasal cannula. HEENT: Head normocephalic. No trauma. PERRLA. NECK: Supple. No JVD. No masses. Central trachea. CHEST: Decreased breath sounds globally, increased expiatory phase, bilateral scattered expiratory wheezing and scattered crackles. ABDOMEN: Soft, nontender, nondistended. No hepatosplenomegaly. EXTREMITIES: Trace edema. No clubbing. No cyanosis. NEUROLOGICAL: At the moment of my evaluation, this patient was alert and oriented x3, but she has been on and off confused. She moves all 4 extremities. LABORATORY: WBC 7.9, hemoglobin 10, hematocrit 33.8, platelets 261,000. ABGs: PH 7.3, pCO2 90, PO2 66, bicarbonate 42.5, oxyhemoglobin 89.9, carboxyhemoglobin 6.5, sodium 137, potassium 4.1, chloride 90, bicarbonate 43, BUN 4, creatinine 0.3, glucose 80, calcium 9. AST 14, ALT 12, alkaline phosphatase 120, albumin 3.7. ASSESSMENT AND PLAN: 1. Acute on chronic hypercapnic respiratory failure, this patient has been placed on the BiPAP machine. I will put this patient on respiratory treatment, steroids and antibiotic coverage. 2. Chronic obstructive pulmonary disease exacerbation, as above. 3. Metabolic encephalopathy. I will transfer this patient to the intensive care unit for close observation. She received Ativan in the emergency department secondary to agitation. 4. Obstructive sleep apnea. She does not use the CPAP machine at home. She will be on a BiPAP machine here. 5. Hypertension. We will monitor. 6. Bipolar disorder. Once alert, I will be able to continue home medications. 7. Hypothyroidism. Continue with Synthroid. 8. Diabetes mellitus type 2. I will do pattern blood sugar and sliding scale insulin. 9. Hyperlipidemia. We will restart her home medications. 10. Deep vein thrombosis prophylaxis will be provided by Lovenox. cc: Drew Cox MD
[2017-03-27] MEDS ORDERED: TRILEPTAL PO SCH (21:00)
[2017-03-27] MEDS ORDERED: PRAVASTATIN SODIUM 40 MG PO SCH (21:00)
[2017-03-27] MEDS: RANEXA PO SCH (21:23)
[2017-03-27] MEDS: BUSPAR PO SCH (21:23)
[2017-03-27] MEDS: SEROQUEL PO SCH (21:23)
[2017-03-27] MEDS: NICODERM PATCH TD PRN (21:24)
[2017-03-27] MEDS: PRAVACHOL PO SCH (21:24)
[2017-03-27] MEDS ORDERED: PNEUMOVAX 23 IM ONE (22:06)
[2017-03-28] MEDS: SOLU-MEDROL IV SCH ×3 (01:09→19:10)
[2017-03-28] MEDS: ATIVAN IV PRN ×5 (02:09→19:09)
[2017-03-28] MEDS: DUONEB (A & A) INH SCH ×5 (02:46→19:19)
[2017-03-28 06:05] LABS: BE 15.4 mmoll (-3.0-3.0); BLOOD TYPE ARTERIAL; DRAW SITE L RADIAL; METHB 1.1 % (0.0-1.5); O2(CT) 13.6 mL/dL (15.0-23.0); PO2(98.6) 57 mmHg (60-100); SAMPLE BLOOD; SAO2 95.2 % (95.0-100.0); SRATE 12 BPM; THB 10.6 g/dL (11.5-17.4); pH(98.6) 7.48 (7.35-7.45)
[2017-03-28 06:07] LABS: PCO2(98.6) 55 mmHg (35-45)
[2017-03-28 06:08] LABS: ALLEN TEST YES; MODALITY BI PAP
[2017-03-28] MEDS ORDERED: SYNTHROID PO SCH ×4 (07:00→07:45)
--- NOTE | 2017-03-28 07:02 | EKG Report ---
Test Performed on : 03/27/2017 3:45:58 PM Test Reason : sob Blood Pressure : / mmHG Vent. Rate : 095 BPM Atrial Rate : 095 BPM P-R Int : 156 ms QRS Dur : 076 ms QT Int : 366 ms P-R-T Axes : 051 071 068 degrees QTc Int : 459 ms Normal sinus rhythm. Normal ECG When compared with ECG of 08-MAR-2017 10:24, No significant change was found Unconfirmed Result
[2017-03-28 07:06] LABS: HEMATOCRIT 35.2 % (37.0-47.0); HEMOGLOBIN 10.8 g/dL (12.0-16.0); IMM GRAN# 0.01 X1000 (0.0-0.04); IMM GRAN% 0.2 % (0.0-0.5); LYMPH% 7.7 % (20.5-51.1); MANUAL DIFF NEEDED? YES; MCH 30.1 PG (27-31); MCHC 30.7 g/dL (33-37); MCV 98.1 FL (81-99); MONO# 0.13 X1000 (0.11-0.59); MONO% 2.5 % (1.7-9.3); MPV 10.4 FL (7.4-10.4); NEUT% 89.6 % (42.2-75.2); PLT 264 X1000 (130-400); RBC 3.59 XMIL (4.2-5.4)
[2017-03-28 08:00] LABS: AGAP 13; ALBUMIN 3.6 g/dL (3.5-5.0); ALKALINE PHOSPHATASE 86 U/L (32-104); BUN 8 mg/dL (8-22); CALCIUM 9.5 mg/dL (8.8-10.2); CHLORIDE 89 mmol/L (98-107); COSMO 269; FREE T4 0.83 ng/dL (0.93-1.70); GOT 15 U/L (10-30); GPT 12 U/L (10-36); POTASSIUM 4.5 mmol/L (3.5-5.1); SODIUM 135 mmol/L (136-145); TCO2 33 mmol/L (25-35); TOTAL PROTEIN 6.6 g/dL (6.3-8.3)
[2017-03-28 08:22] LABS: BANDS 2 % (0-1); LYMPHS 9 % (21-51); MONO 2 % (1-9)
[2017-03-28] MEDS: TOPROL XL PO SCH (08:41)
[2017-03-28] MEDS: ABILIFY PO SCH (08:41)
[2017-03-28] MEDS: ASPIRIN EC PO SCH (08:41)
[2017-03-28] MEDS: BUSPAR PO SCH ×2 (08:41→20:32)
[2017-03-28] MEDS: RANEXA PO SCH ×2 (08:41→20:33)
[2017-03-28] MEDS: ZOLOFT PO SCH (08:44)
[2017-03-28] MEDS: FOLIC ACID PO SCH (08:45)
[2017-03-28] MEDS: SYNTHROID PO SCH ×2 (10:35)
--- NOTE | 2017-03-28 15:22 | PROGRESS NOTE ---
DATE: 03/28/2017 SUBJECTIVE: The patient continues to have episodes of agitation, attempting to pull BiPAP off as well as to pull her IV and [place] out. She continues to only be oriented to herself. She does have soft wrist restraints in place. OBJECTIVE: Vital Signs: Blood pressure is 153/90 with a heart rate of 96, respirations are 24. Temperature is 97.3 degrees with oxygen saturations of 97-98% on BiPAP. Cardiovascular: Regular rate and rhythm. S1 and S2 are appreciated. Pulmonary: Breath sounds have scattered wheezes, diminished throughout. Gastrointestinal: Abdomen is soft, nontender, nondistended. Bowel sounds in all 4 quadrants. Extremities: No clubbing, cyanosis, or edema. Pulses are palpable. Neurologic: She is oriented to herself. She continues in restraints. LABORATORY: WBC is 5.2 with hemoglobin 10.8, hematocrit 35.2, and platelets of 264,000. Sodium is 135, potassium 4.5, BUN 8, creatinine 0.3 with a glucose of 107. Her TSH is 0.14 with a free T4 of 0.83. Arterial blood gases: PH is 7.48 with a pCO2 of 55, PO2 of 57, and a bicarb of 36.8. This is on BiPAP. ASSESSMENT AND PLAN: 1. Acute on chronic hypercapnic respiratory failure. 2. Chronic obstructive pulmonary disease exacerbation. 3. Metabolic encephalopathy. 4. Hypertension. 5. History of bipolar disorder. 6. Hypothyroid. 7. Obstructive sleep apnea. 8. Diabetes type 2. 9. Hyperlipidemia. PLAN: We will continue monitoring in intensive care unit. She will be on telemetry. We will continue with BiPAP. Restraints as needed. We will give antibiotics. Steroids to taper. We will give Ativan as needed for agitation. We will continue with her Synthroid. Pattern blood glucose with sliding scale insulin. For DVT prophylaxis, we will use Lovenox. Dictated by TUSHAR Castro for Damian Prince MD cc: TUSHAR Castro MD
[2017-03-28] MEDS: SEROQUEL PO SCH (20:32)
[2017-03-28] MEDS: NICODERM PATCH TD PRN (20:33)
[2017-03-28] MEDS: PRAVACHOL PO SCH (20:33)
[2017-03-29] MEDS: DUONEB (A & A) INH SCH ×7 (00:10→22:50)
[2017-03-29] MEDS: ATIVAN IV PRN ×4 (00:53→19:16)
[2017-03-29] MEDS: SOLU-MEDROL IV SCH ×4 (00:53→23:35)
[2017-03-29 05:41] LABS: BE 13.5 mmoll (-3.0-3.0); BLOOD TYPE ARTERIAL; DRAW SITE R RADIAL; O2(CT) 15.1 mL/dL (15.0-23.0); PCO2(98.6) 48 mmHg (35-45); PO2(98.6) 53 mmHg (60-100); SAMPLE BLOOD; SAO2 89.9 % (95.0-100.0); SRATE 12 BPM; THB 12.3 g/dL (11.5-17.4); pH(98.6) 7.51 (7.35-7.45)
[2017-03-29 05:44] LABS: ALLEN TEST YES; MODALITY BI PAP
[2017-03-29] MEDS: SYNTHROID PO SCH ×2 (06:21)
[2017-03-29 06:52] LABS: HEMATOCRIT 36.9 % (37.0-47.0); MCH 30.5 PG (27-31); MCHC 32.5 g/dL (33-37); MCV 93.7 FL (81-99); MPV 10.2 FL (7.4-10.4); RBC 3.94 XMIL (4.2-5.4)
[2017-03-29 07:09] LABS: AGAP 11; ALBUMIN 3.6 g/dL (3.5-5.0); ALKALINE PHOSPHATASE 82 U/L (32-104); BUN 13 mg/dL (8-22); CALCIUM 9.4 mg/dL (8.8-10.2); CHLORIDE 94 mmol/L (98-107); COSMO 273; GOT 13 U/L (10-30); GPT 10 U/L (10-36); MAGNESIUM 2.3 mg/dL (1.5-2.7); POTASSIUM 3.9 mmol/L (3.5-5.1); SODIUM 136 mmol/L (136-145); TCO2 31 mmol/L (25-35); TOTAL PROTEIN 6.5 g/dL (6.3-8.3)
[2017-03-29] MEDS: ASPIRIN EC PO SCH (08:14)
[2017-03-29] MEDS: RANEXA PO SCH ×2 (08:14→20:58)
[2017-03-29] MEDS: BUSPAR PO SCH ×2 (08:14→20:59)
[2017-03-29] MEDS: ABILIFY PO SCH (08:14)
[2017-03-29] MEDS: ZOLOFT PO SCH (08:14)
[2017-03-29] MEDS: TOPROL XL PO SCH (08:14)
[2017-03-29] MEDS: FOLIC ACID PO SCH (08:15)
[2017-03-29] MEDS ORDERED: ATIVAN IV ONE (12:21)
--- NOTE | 2017-03-29 18:49 | PROGRESS NOTE ---
DATE: 03/29/2017 SUBJECTIVE: Patient is having episodes of agitation. She is sitting at the side of the bed talking to a friend and she would spontaneously burst into tears. She denies any pain or any discomfort. OBJECTIVE: Vital Signs: Blood pressure is 138/72 with a heart rate of 91, respirations are 23, temperature is 98.4 degrees oral with oxygen saturations of 93-96% on 3 L nasal cannula. Cardiovascular: Regular rate and rhythm, S1, S2 appreciated. Pulmonary: She continues with some scattered wheezes but less than yesterday. She has no increased work of breathing noted. Gastrointestinal: Abdomen is soft, nontender, nondistended with bowel sounds in all 4 quadrants. Extremities: No clubbing, cyanosis, or edema. Pulses are palpable. Calves are nontender. Neurologic: She is oriented. She is anxious. She is tearful. LABS: WBC is 4.1 with a hemoglobin of 12, hematocrit 36.9 and platelets of 319,000. Sodium is 136, potassium 3.9, BUN 13, creatinine 0.5, with glucose ranging from looks like 108-142. TSH 0.19. ASSESSMENT AND PLAN: 1. Acute on chronic hypercapnic respiratory failure. This is improving. 2. Chronic obstructive pulmonary disease exacerbation improving. 3. Metabolic encephalopathy. This is resolved. 4. Hypertension. 5. History of bipolar disorder. 6. Hypothyroid. 7. Obstructive sleep apnea. 8. Diabetes type 2. 9. Hyperlipidemia. PLAN: Will continue to monitor the patient in ICU. Will continue with telemetry. Continue to taper steroids. Pattern blood glucose with sliding scale insulin. We did call [facility] regarding evaluating the patient and they will evaluate the patient when she is ready to be discharged. Hopefully that will be in next 1-2 days. Dictated by TUSHAR Castro for Damian Prince MD cc: TUSHAR Castro MD
[2017-03-29] MEDS: SEROQUEL PO SCH (20:58)
[2017-03-29] MEDS: NICODERM PATCH TD PRN (20:59)
[2017-03-29] MEDS: PRAVACHOL PO SCH (20:59)
[2017-03-30] MEDS: DUONEB (A & A) INH SCH ×4 (03:10→15:47)
[2017-03-30] MEDS: SYNTHROID PO SCH ×2 (06:22)
[2017-03-30] MEDS: SOLU-MEDROL IV SCH ×2 (08:10→15:38)
[2017-03-30] MEDS: TOPROL XL PO SCH (08:10)
[2017-03-30] MEDS: ABILIFY PO SCH (08:10)
[2017-03-30] MEDS: ASPIRIN EC PO SCH (08:10)
[2017-03-30] MEDS: FOLIC ACID PO SCH (08:10)
[2017-03-30] MEDS: ZOLOFT PO SCH (08:10)
[2017-03-30] MEDS: BUSPAR PO SCH (08:10)
[2017-03-30] MEDS: ATIVAN IV PRN ×2 (08:10→12:29)
[2017-03-30] MEDS: RANEXA PO SCH (08:11)
[2017-03-30 15:15] VITALS: BP 109/66
--- NOTE | 2017-04-11 16:17 | DISCHARGE SUMMARY ---
ADMISSION DATE: 03/27/2017 DISCHARGE DATE: 03/30/2017 DISCHARGE DIAGNOSES: 1. Chronic obstructive pulmonary disease with exacerbation resolved. 2. Hypoxemia improved. 3. Acute on chronic hypercapnic respiratory failure, improved. The Patient required BiPAP during the hospital stay. 4. Metabolic encephalopathy secondary to severe hypercapnia resolved. 5. Obstructive sleep apnea. Patient unfortunately is not compliant by her own admission with CPAP at home as she notes that she rarely uses it. 6. Hypertension. 7. Bipolar. 8. Hypothyroidism. 9. Type 2 diabetes. 10. Hyperlipidemia. CONSULTATIONS: None. PROCEDURES: None. BRIEF HOSPITAL COURSE: Patient is a 51-year-old female who presented to the emergency department as noted on the HPI, and was subsequently diagnosed with hypercapnic respiratory failure. She was admitted to the hospital. She was given BiPAP nebulized treatments, steroids, oxygen, antibiotics, IV fluids. She was placed in the ICU and remained on BiPAP for the next several days. Her pCO2 was markedly elevated and after several days on BiPAP, her pCO2 continued to improve. On discharge, she is awake, alert. She is back to her usual self. She is in no respiratory distress. Currently she is awake, alert, oriented. She is refusing any further assistance from [facility]. She is able to ambulate the burgos. She slept overnight. She has been off BiPAP for the past 36 hours and has been stable. DISPOSITION: The patient will be discharged home. Again, discussed with her the importance of CPAP at home. Discussed with her the importance of not smoking, avoiding anyone who does smoke or has strong perfumes or odors. Discussed with the patient that she needs to follow up outpatient with her primary care physician. Further orders as needed. TIME SPENT: 35 minutes was spent in discharge planning and instructions. cc: Damian Prince MD
--- NOTE | 2017-06-25 08:14 | ED EKG INTERP ---
This chart was entered by Chante Salazar Scribe, acting as scribe for Rodrigo Garces MD. EKG Interpretation - EKG Time of EKG reading by physician:: 15:45 EKG Read and Signed by:: Rodrigo Garces EKG Interpretation (*Must complete 3 of following elements*): Normal Rate: 95 Rhythm: normal sinus rhythm Fleming: normal QRS: normal GA Interval: normal Attestation - Physician/ NHUNG Attestation Patient care was provided by Advanced Practice Provider:: Yes Advanced Practice Provider documentation review:: The Mid-level provider documentation, treatment plan and medical decision making was reviewed by the physician who agrees with all treatment and medical decision making by the MLP. The physician spent face to face time with patient:: No Advanced Practice Provider documentation review:: Supervising physician onsite and consulted in the evaluation and care of this patient. The physician did not have a face to face encounter with the patient. This chart was documented by the indicated scribe, (Chante Salazar Scribe) and accurately reflects the services I performed and decisions made by Mili haas Michael L., MD, as attested by the provider's signature.
== END 2017-03-30 17:31 | disposition home or self-care (01) ==
LOC: P.ED 15:12 → SUATTDRO 17:07 → P.ICU 17:07
PROVIDERS: ATTEND Family Medicine

== ENCOUNTER 2017-05-21 17:01 | Inpatient (IN) ==
[2017-05-21 17:36] LABS: MANUAL DIFF NEEDED? NO
[2017-05-21 17:37] LABS: BE 29.2 mmoll (-3.0-3.0); BLOOD TYPE ARTERIAL; DRAW SITE R RADIAL; METHB 0.7 % (0.0-1.5); SAMPLE BLOOD; SAO2 92.4 % (95.0-100.0); THB 12.6 g/dL (11.5-17.4); pH(98.6) 7.39 (7.35-7.45)
[2017-05-21 17:51] LABS: PCO2(98.6) 100 mmHg (35-45); PO2(98.6) 44 mmHg (60-100)
--- NOTE | 2017-05-21 17:51 | Diag Imaging Result Doc PS360 ---
EXAM: CHEST-2 VIEWS HISTORY: CP TECHNIQUE: PA and lateral chest COMMENT: There is a calcified granuloma in the left lower lobe. There appear to be calcified nodes in the right hilum. There is been no significant change in the appearance of the chest since previous study of 03/27/2017. IMPRESSION: No evidence of acute disease. Electronically signed by Chau Nation 05/21/2017 5:49 PM
[2017-05-21 17:52] LABS: ALLEN TEST YES; MODALITY CANNULA
[2017-05-21] MEDS ORDERED: DUONEB (A & A) INH ONE ×2 (18:00→21:25)
[2017-05-21 18:06] LABS: INR 0.9 (0.86-1.15); PROTIME 12.9 Seconds (12.1-15.5)
[2017-05-21 18:07] LABS: PTT PL 30.9 Seconds (22.6-43.9)
[2017-05-21 18:25] LABS: AGAP 5; ALBUMIN 3.6 g/dL (3.5-5.0); ALKALINE PHOSPHATASE 72 U/L (32-104); BUN 3 mg/dL (8-22); CALCIUM 9.3 mg/dL (8.8-10.2); CHLORIDE 84 mmol/L (98-107); CK PROFILE 56 U/L (24-173); COSMO 272; GOT 11 U/L (10-30); GPT 8 U/L (10-36); MAGNESIUM 1.7 mg/dL (1.5-2.7); POTASSIUM 3.5 mmol/L (3.5-5.1); SODIUM 137 mmol/L (136-145); TCO2 48 mmol/L (25-35); TOTAL BILIRUBIN < 0.15 mg/dL (0.20-1.00); TOTAL PROTEIN 6.2 g/dL (6.3-8.3)
[2017-05-21 18:26] LABS: BASO% 0.2 % (0.0-0.8); EOS# 0.03 X1000 (0.0-0.7); EOS% 0.3 % (0.0-10.0); HEMATOCRIT 40.8 % (37.0-47.0); HEMOGLOBIN 12.4 g/dL (12.0-16.0); IMM GRAN# 0.04 X1000 (0.0-0.04); IMM GRAN% 0.5 % (0.0-0.5); LYMPH# 1.19 X1000 (1.2-3.4); LYMPH% 13.5 % (20.5-51.1); MCH 32.3 PG (27-31); MCHC 30.4 g/dL (33-37); MCV 106.3 FL (81-99); MONO% 10.2 % (1.7-9.3); NEUT% 75.3 % (42.2-75.2); PLT 302 X1000 (130-400); RBC 3.84 XMIL (4.2-5.4)
[2017-05-21 19:08] LABS: BE 31.6 mmoll (-3.0-3.0); BLOOD TYPE ARTERIAL; DRAW SITE R RADIAL; METHB 0.6 % (0.0-1.5); O2(CT) 13.5 mL/dL (15.0-23.0); PO2(98.6) 71 mmHg (60-100); SAMPLE BLOOD; SAO2 97.1 % (95.0-100.0); SRATE 12 BPM; pH(98.6) 7.35 (7.35-7.45)
[2017-05-21 19:10] LABS: PCO2(98.6) 116 mmHg (35-45)
[2017-05-21 19:11] LABS: ALLEN TEST YES; MODALITY BI PAP
--- NOTE | 2017-05-21 20:34 | Diag Imaging Result Doc PS360 ---
EXAM: CT ANGIOGRM/PULMONARY ARTERIES HISTORY: sob,elevated d-dimer TECHNIQUE: CT of the chest with intravenous contrast COMMENT: There are no filling defects in the pulmonary arteries. The aorta is not distended and there is no evidence of dissection. There are no abnormal fluid collections. There is no evidence of acute bony abnormality. There are some linear fibrotic appearing opacities in both lower lobes. There is a calcified granuloma in the left lower lobe. There is atelectasis or fibrosis in the lingula. IMPRESSION: Questionable minimal atelectasis. No evidence of pulmonary emboli or other acute abnormality. Electronically signed by Chau Nation 05/21/2017 8:31 PM
[2017-05-21] MEDS ORDERED: SOLU-MEDROL IV ONE (21:25)
[2017-05-21 22:11] LABS: UR AMPHETAMINES QUAL NONE DETECTED (NONE DETECT); UR BARBITUATES QUAL NONE DETECTED (NONE DETECT); UR BENZODIAZEPIN QUAL NONE DETECTED (NONE DETECT); UR CANNABINOIDS QUAL NONE DETECTED (NONE DETECT); UR COCAINE QUAL NONE DETECTED (NONE DETECT); UR MDMA QUAL NONE DETECTED (NONE DETECT); UR METHADONE QUAL NONE DETECTED (NONE DETECT); UR METHAMPHETAMINE QUAL NONE DETECTED (NONE DETECT); UR OPIATES QUAL NONE DETECTED (NONE DETECT); UR OXYCODONE QUAL NONE DETECTED (NONE DETECT); UR PCP QUAL NONE DETECTED (NONE DETECT); UR TCA QUAL PRESUMPTIVE POSITIVE (NONE DETECT)
[2017-05-21] MEDS: DUONEB (A & A) INH SCH (23:58)
[2017-05-22] MEDS: DUONEB (A & A) INH SCH ×6 (03:51→23:34)
[2017-05-22] MEDS ORDERED: ATIVAN IV ONE (08:12)
[2017-05-22] MEDS: NICODERM PATCH TD SCH (08:19)
[2017-05-22] MEDS ORDERED: ZOFRAN IV PRN (08:19)
[2017-05-22 08:21] LABS: BE 27.5 mmoll (-3.0-3.0); BLOOD TYPE ARTERIAL; DRAW SITE R RADIAL; METHB 0.8 % (0.0-1.5); SAMPLE BLOOD; SAO2 88.4 % (95.0-100.0); THB 12.9 g/dL (11.5-17.4); pH(98.6) 7.54 (7.35-7.45)
[2017-05-22 08:28] LABS: ALLEN TEST YES; MODALITY BI PAP
[2017-05-22 08:29] LABS: PCO2(98.6) 64 mmHg (35-45)
[2017-05-22 08:31] LABS: PO2(98.6) 40 mmHg (60-100)
[2017-05-22] MEDS: SOLU-MEDROL IV SCH ×3 (09:16→16:59)
[2017-05-22] MEDS ORDERED: GEODON IM ONE ×2 (10:10→10:57)
[2017-05-22] MEDS ORDERED: STERILE WATER INJ. INJ ONE ×2 (10:10→10:57)
[2017-05-22] MEDS ORDERED: STERILE WATER INJ. INJ PRN (10:10)
[2017-05-22] MEDS ORDERED: DESYREL PO PRN (10:42)
[2017-05-22] MEDS ORDERED: MELATONIN PO PRN (10:42)
[2017-05-22] MEDS: HUMALOG DOSE (PARKWAY) SUBQ SCH ×3 (13:29→20:09)
[2017-05-22] MEDS ORDERED: OFIRMEV 1000 MG/ISOTONIC SOLN 1,000 MG/100 ML BOTTLE IV ONE (14:02)
[2017-05-22] MEDS ORDERED: TYLENOL PO PRN (14:03)
--- NOTE | 2017-05-22 15:05 | Diag Imaging Result Doc PS360 ---
EXAM: CT HEAD W/O CONTRAST HISTORY: encephalopathy TECHNIQUE: CT of the head without contrast COMMENT: There is no evidence of mass effect, bleed, abnormal extra-axial fluid collection, hydrocephalus, or significant change since 03/08/2017. The calvarium is intact. The paranasal sinuses are clear. IMPRESSION: No acute abnormality. Electronically signed by Chau Nation 05/22/2017 3:02 PM
[2017-05-22] MEDS: ROCEPHIN 1 GM in NS 50 ML IV SCH (15:20)
[2017-05-22] MEDS: ULTRAM PO SCH ×2 (15:20→20:08)
[2017-05-22] MEDS: GEODON IM PRN (16:58)
[2017-05-22] MEDS: GLUCOPHAGE XR PO SCH (16:59)
[2017-05-22] MEDS: SYMBICORT 160/4.5 MICROGM INHALER INH SCH (19:40)
[2017-05-22] MEDS: PRAVACHOL PO SCH (20:07)
[2017-05-22] MEDS: ATIVAN PO SCH (20:07)
[2017-05-22] MEDS: RANEXA PO SCH (20:08)
[2017-05-22] MEDS: TRILEPTAL PO SCH (20:08)
[2017-05-22] MEDS: SEROQUEL PO SCH (20:09)
[2017-05-23] MEDS: SOLU-MEDROL IV SCH ×4 (00:37→18:46)
[2017-05-23 03:42] LABS: C DIFF ANTIGEN PL NEGATIVE (NEGATIVE); C DIFF TOXIN PL NEGATIVE (NEGATIVE)
[2017-05-23] MEDS: DUONEB (A & A) INH SCH ×6 (03:49→23:33)
[2017-05-23] MEDS: GEODON IM PRN (04:12)
[2017-05-23] MEDS: HUMALOG DOSE (PARKWAY) SUBQ SCH ×4 (06:04→21:53)
[2017-05-23] MEDS: PRILOSEC PO SCH (06:04)
[2017-05-23] MEDS: SYNTHROID PO SCH ×2 (06:05→08:18)
[2017-05-23 06:07] LABS: HEMATOCRIT 40.4 % (37.0-47.0); HEMOGLOBIN 12.7 g/dL (12.0-16.0); MCH 31.1 PG (27-31); MCHC 31.4 g/dL (33-37); MPV 9.8 FL (7.4-10.4); RBC 4.08 XMIL (4.2-5.4)
[2017-05-23 06:13] LABS: HEMOGLOBIN A1C 4.5 % (4.8-6.0)
[2017-05-23 06:40] LABS: AGAP 9; BUN 9 mg/dL (8-22); CALCIUM 9.4 mg/dL (8.8-10.2); CHLORIDE 91 mmol/L (98-107); COSMO 278; MAGNESIUM 1.7 mg/dL (1.5-2.7); POTASSIUM 3.3 mmol/L (3.5-5.1); SODIUM 140 mmol/L (136-145); TCO2 41 mmol/L (25-35)
[2017-05-23] MEDS ORDERED: SYNTHROID PO SCH (07:00)
[2017-05-23] MEDS: INCRUSE ELLIPTA INH SCH (07:57)
[2017-05-23] MEDS: SYMBICORT 160/4.5 MICROGM INHALER INH SCH ×2 (07:59→19:20)
[2017-05-23] MEDS: MOBIC PO SCH (08:18)
[2017-05-23] MEDS: ABILIFY PO SCH (08:18)
[2017-05-23] MEDS: TRILEPTAL PO SCH ×2 (08:18→21:51)
[2017-05-23] MEDS: ULTRAM PO SCH ×3 (08:19→21:51)
[2017-05-23] MEDS: TOPROL XL PO SCH (08:19)
[2017-05-23] MEDS: RANEXA PO SCH ×2 (08:20→21:51)
[2017-05-23] MEDS: ATIVAN PO SCH ×2 (08:20→21:50)
[2017-05-23] MEDS: ZOLOFT PO SCH (08:20)
[2017-05-23] MEDS: NICODERM PATCH TD SCH (08:20)
[2017-05-23] MEDS: ASPIRIN EC PO SCH (08:20)
[2017-05-23] MEDS: DALIRESP PO SCH (08:20)
[2017-05-23] MEDS ORDERED: KLOR-CON PO ONE (10:35)
[2017-05-23] MEDS: ROCEPHIN 1 GM in NS 50 ML IV SCH (15:22)
[2017-05-23] MEDS: GLUCOPHAGE XR PO SCH (16:30)
[2017-05-23] MEDS: KLONOPIN PO PRN (16:30)
[2017-05-23] MEDS: SEROQUEL PO PRN (18:47)
[2017-05-23] MEDS: PRAVACHOL PO SCH (21:51)
[2017-05-23] MEDS: SEROQUEL PO SCH (21:52)
[2017-05-24] MEDS: SOLU-MEDROL IV SCH ×2 (03:29→15:30)
[2017-05-24] MEDS: DUONEB (A & A) INH SCH ×6 (03:53→23:35)
[2017-05-24 06:51] LABS: HEMATOCRIT 44.3 % (37.0-47.0); HEMOGLOBIN 14.2 g/dL (12.0-16.0); MCH 30.9 PG (27-31); MCHC 32.1 g/dL (33-37); MCV 96.5 FL (81-99); MPV 9.5 FL (7.4-10.4); RBC 4.59 XMIL (4.2-5.4)
[2017-05-24] MEDS: HUMALOG DOSE (PARKWAY) SUBQ SCH ×4 (06:54→22:18)
[2017-05-24] MEDS: SYNTHROID PO SCH ×2 (06:54)
[2017-05-24] MEDS: PRILOSEC PO SCH (06:54)
[2017-05-24] MEDS: SYMBICORT 160/4.5 MICROGM INHALER INH SCH ×2 (07:07→19:07)
[2017-05-24 07:13] LABS: AGAP 7; BUN 14 mg/dL (8-22); CALCIUM 9.8 mg/dL (8.8-10.2); CHLORIDE 89 mmol/L (98-107); COSMO 275; POTASSIUM 3.8 mmol/L (3.5-5.1); SODIUM 136 mmol/L (136-145); TCO2 40 mmol/L (25-35)
[2017-05-24] MEDS: INCRUSE ELLIPTA INH SCH (07:19)
[2017-05-24] MEDS: ZOLOFT PO SCH (08:58)
[2017-05-24] MEDS: TOPROL XL PO SCH (08:58)
[2017-05-24] MEDS: ATIVAN PO SCH ×2 (08:58→22:22)
[2017-05-24] MEDS: ABILIFY PO SCH (08:58)
[2017-05-24] MEDS: ULTRAM PO SCH ×3 (08:59→22:21)
[2017-05-24] MEDS: TRILEPTAL PO SCH ×2 (08:59→22:21)
[2017-05-24] MEDS: RANEXA PO SCH ×2 (08:59→22:20)
[2017-05-24] MEDS: ASPIRIN EC PO SCH (08:59)
[2017-05-24] MEDS: MOBIC PO SCH (08:59)
[2017-05-24] MEDS: DALIRESP PO SCH (08:59)
[2017-05-24] MEDS: NICODERM PATCH TD SCH (09:02)
[2017-05-24] MEDS ORDERED: SOLU-MEDROL IV SCH (11:30)
[2017-05-24] MEDS: KLONOPIN PO PRN (12:24)
[2017-05-24] MEDS: ROCEPHIN 1 GM in NS 50 ML IV SCH (14:27)
[2017-05-24] MEDS: GLUCOPHAGE XR PO SCH (16:36)
[2017-05-24] MEDS: SEROQUEL PO PRN (20:10)
[2017-05-24] MEDS: SEROQUEL PO SCH (22:19)
[2017-05-24] MEDS: PRAVACHOL PO SCH (22:20)
[2017-05-25] MEDS: DUONEB (A & A) INH SCH ×3 (03:32→11:42)
[2017-05-25] MEDS: SOLU-MEDROL IV SCH (05:23)
[2017-05-25] MEDS: SYNTHROID PO SCH ×2 (06:13)
[2017-05-25] MEDS: PRILOSEC PO SCH (06:13)
[2017-05-25] MEDS: INCRUSE ELLIPTA INH SCH (07:27)
[2017-05-25] MEDS: SYMBICORT 160/4.5 MICROGM INHALER INH SCH (07:27)
[2017-05-25] MEDS: HUMALOG DOSE (PARKWAY) SUBQ SCH ×2 (07:59→11:23)
[2017-05-25 08:08] VITALS: BP 162/92
[2017-05-25] MEDS: ABILIFY PO SCH (08:54)
[2017-05-25] MEDS: ASPIRIN EC PO SCH (08:54)
[2017-05-25] MEDS: TRILEPTAL PO SCH (08:54)
[2017-05-25] MEDS: TOPROL XL PO SCH (08:55)
[2017-05-25] MEDS: ATIVAN PO SCH (08:55)
[2017-05-25] MEDS: MOBIC PO SCH (08:55)
[2017-05-25] MEDS: ZOLOFT PO SCH (08:55)
[2017-05-25] MEDS: DALIRESP PO SCH (08:55)
[2017-05-25] MEDS: ULTRAM PO SCH (08:55)
[2017-05-25] MEDS: RANEXA PO SCH (08:56)
[2017-05-25] MEDS: NICODERM PATCH TD SCH (08:56)
== END 2017-05-25 12:35 | disposition home or self-care (01) ==
LOC: P.ED 17:01 → P.MEDSURG 22:51 → INTOOBSV 22:51 → P.ICU 05-22 10:41 → SUATTDRO 05-22 10:42 → P.MEDSURG 05-23 13:16
PROVIDERS: ATTEND Family Medicine